=== PATIENT | female | born 1985 | race Caucasian/White ===

== ENCOUNTER 2023-04-20 14:43 | Emergency (ER) | payer BC, SELFPAY ==
[2023-04-20 14:48] VITALS: BP 141/108; PULSE 93; RESP 24; TEMP 36.4; O2SAT 100; BMI 32.1
--- NOTE | 2023-04-20 15:02 | ED_ITS ---
HPI - General Adult General Time Seen by Provider: 15:02 Date Seen: 04/20/23 Chief complaint: Abdominal Pain Stated complaint: severe stomach pains Time Seen by Provider: 04/20/23 14:45 Source: patient Mode of arrival: ambulatory Limitations: no limitations History of Present Illness HPI narrative: Patient is a 37 year white female new to our hospital and ER who now lives in [place]. She has been hospitalized for cyclic vomiting syndrome and treated in the ER many times for at [facility] by her report. The patient reports she has posttraumatic stress disorder, depression/anxiety, and cyclic vomiting syndrome. She has not smoked marijuana for a couple of weeks. She reports that ?running water down my back tends to help this the most and of ?. She is alert oriented, is retching. Is anxious and screaming about on the bed. She denies significant abdominal pain to me denies chest pain breathing problem neurologic complaint. She is on trazodone and also on a small dose of olanzapine 2.5 mg orally daily. She is down to no history of cardiac arrhythmias no history of QT interval prolongation by her report when asked. She has tolerated the Zyprexa well. No recent illness. She does report that her posttraumatic stress has been ramped up recently as well. Related Data Allergies Allergy/AdvReac Type Severity Reaction Status Date / Time No Known Drug Allergies Allergy Verified 04/20/23 14:47 Review of Systems Status of ROS: Reports: 6 or more systems reviewed and unremarkable except as noted in History and below [facility] Social History Smoking Status: Current some day smoker Do you use any of these nicotine containing products: None How often do you have a drink containing alcohol: never How often do you have six or more drinks on one occasion: Less than monthly AUDIT-C Alcohol total score: 1 service: No Exam Narrative: Exam Narrative: Objective: In general the patient is retching but able to talk, is distracti ble. She is able to show me her medic and medications that she has on her phone. Vital signs look largely unremarkable on that elevated blood pressure Alert orient x3 Noncyanotic No facial asymmetry neck is supple pulses regular abdomen nontender soft, bowel sounds normoactive Extremities are no edema neurologic nonfocal No skin rashes noted No nuchal rigidity Const: Vital Signs, click to edit/add: Vital Signs - 24 hr 04/20/23 18:38 Pulse Rate [Pulse Oximeter] 78 Respiratory Rate 20 Blood Pressure [Ri ght Upper Arm] 137/88 Pulse Oximetry 98 Oxygen Delivery Me thod Room Air Course Course Hospital Course: Patient was signed out to me by Dr. Hassan to follow-up on labs. Her labs are all normal including CBC, metabolic panel, LFTs, amylase and CRP. Notably sodium and potassium as well as CO2 are all normal. She had some IV fluids. She had apparently had Zofran at home. She had Ativan and Zyprexa prior to my taking over. She was noted to be sleeping but then when the nurse would go in the room she would start to retching complained that she was not feeling better. I did give her droperidol 2.5 mg. She slept for a period of time after that and I think it is reasonable to let her go home. Follow discharge instructions per Dr. Hassan. Vital Signs Vital signs: Initial Vital Signs Temperature 97.5 F L 04/20/23 14:48 Temperature Source Temporal Artery Scan 04/20/23 14:48 Pulse Rate 93 04/20/23 14:48 Pulse Rhythm Regular 04/20/23 14:48 Respiratory Rate 24 04/20/23 14:48 Blood Pressure 141/108 H 04/20/23 14:48 Blood Pressure Mean 119 H 04/20/23 14:48 Blood Pressure Position Supine 04/20/23 14:48 Pulse Oximetry 100 04/20/23 14:48 Oxygen Delivery Method Room Air 04/20/23 14:48 Vital Signs Temperature 97.5 F L 04/20/23 14:48 Pulse Rate 93 04/20/23 14:48 Respiratory Rate 24 04/20/23 14:48 Blood Pressure 141/108 H 04/20/23 14:48 Pulse Oximetry 100 04/20/23 14:48 Oxygen Delivery Method Room Air 04/20/23 14:48 Temperature 97.5 F L 04/20/23 14:48 Pulse Rate 78 04/20/23 18:38 Respiratory Rate 20 04/20/23 18:38 Blood Pressure 137/88 04/20/23 18:38 Pulse Oximetry 98 04/20/23 18:38 Oxygen Delivery Method Room Air 04/20/23 18:38 Medical Decision Making MDM Narrative Medical decision making narrative: [age] white female with history of cyclic vomiting syndrome, posttraumatic stress disorder, anxiety/depression, presents with a cyclic vomiting type episode. She does take Zyprexa small dose daily, I think at this point the most effective treatment would be IV fluids, IV Zyprexa and IV Ativan. She does report that she took Zofran already today. Will do a battery of laboratory studies, and use the treatment as above. The patient does feel she can get a ride home. Stressed the importance of staying away from THC products. Also that she should re-consult with her primary care doctor about her posttraumatic stress disorder. She denies suicidality. Addendum: 3:42 p.m. the patient is getting a little bit a relief from her medications, I think giving her additional 5 mg IV Zyprexa be appropriate. She has had less retching but still retching some. We will review labs and disposition pending her clinical response. She does have a ride from her father. Will review her labs and they return. Change of shift and Dr. Cornell will assume care at this point for discharge and lab review. Lab Data Labs: Lab Results 04/20/23 Range/Units 15:00 WBC 12.48 H (4.50-11.00) K/uL RBC 4.83 (4.00-5.20) m/uL Hgb 12.6 (12.0-16.0) gm/dL Hct 39.4 (33.0-51.0) % MCV 82 (80-100) fL MCH 26 (26-34) pg MCHC 32 (32-36) gm/dL RDW Coeff of [place] 14.3 (11.5-15.5) % Plt Count 353 (140-440) K/uL Neut % (Auto) 73.3 H (42.0-72.0) % Lymph % (Auto) 19.3 L (20-44) % [place] % (Auto) 5.0 (0.0-11.0) % Eos % (Auto) 1.8 (0.0-7.0) % Baso % (Auto) 0.4 (0.0-3.0) % Neut # (Auto) 9.10 H (1.7-7.0) K/uL Lymph # (Auto) 2.40 (0.90-2.90) K/uL [place] # (Auto) 0.60 (0.00-0.90) K/UL Eos # (Auto) 0.20 (0.00-0.50) K/uL Baso # (Auto) 0.00 (0.00-0.30) K/uL Abs Immat Gran (auto) 0.00 (0.00-0.30) K/uL Imm/Tot Granulo (auto) 0.2 % Sodium 138 (135-149) mmol/L Potassium 3.6 (3.6-5.1) mmol/L Chloride 103 (96-114) mmol/L Carbon Dioxide 24 (20-32) mmol/L BUN 14 (5-24) mg/dL Creatinine 0.8 (0.5-1.5) mg/dL Estimated Creat Clear 93.63 Estimated GFR 97 ml/min Glucose 113 (60-115) mg/dL Calcium 9.7 (8.4-10.6) mg/dL Total Bilirubin 0.4 (0.1-1.5) mg/dL Direct Bilirubin 0.0 (0.0-0.5) mg/dL AST 31 (12-35) U/L ALT 30 (4-35) U/L Alkaline Phosphatase 71 (40-150) U/L C-Reactive Protein 0.7 (0.5-1.0) mg/dL Total Protein 7.8 (6.0-8.3) g/dL Albumin 4.6 (3.3-5.0) g/dL Amylase 52 (18-89) U/L Discharge Plan Discharge Clinical Impression: Cyclic vomiting syndrome, Chronic posttraumatic stress disorder Patient Disposition: Home w/ Parent or Adult Condition: Improved Additional Instructions: Light activity, fluids, continue home medications, avoid any THC containing products. Recheck with regular doctor to talk about your mental health as well as the cyclical vomiting syndrome. Return to the ED as needed. Activity Level: Light activity Discharge Diet: Regular Stand Alone Forms: [employer] Info Instructions
[2023-04-20] MEDS: 0.9 % SODIUM CHLORIDE 1000 ml 1,000 ML 6000 ML IV (15:23)
[2023-04-20] MEDS: OLANZapine 5 MG/ML inj IVP ×2 (15:24→15:44)
[2023-04-20] MEDS: LORazepam 2 MG/ML inj 1 MG IVP (15:24)
[2023-04-20 15:31] LABS: Basophils Percent Auto 0.4 % (0.0-3.0); Eosinophils Percent Auto 1.8 % (0.0-7.0); Hematocrit 39.4 % (33.0-51.0); Hemoglobin* 12.6 gm/dL (12.0-16.0); Immature Granulocytes Pct Auto 0.2 %; Lymphocytes Percent Auto 19.3 % (20-44); Mean Corpuscular HGB Conc 32 gm/dL (32-36); Mean Corpuscular Hemoglobin 26 pg (26-34); Mean Corpuscular Volume 82 fL (80-100); Neutrophils Percent Auto 73.3 % (42.0-72.0); Platelet Count* 353 K/uL (140-440); RDW Coefficient of Variation % 14.3 % (11.5-15.5); Red Blood Count 4.83 m/uL (4.00-5.20); White Blood Count* 12.48 K/uL (4.50-11.00)
[2023-04-20 15:46] LABS: Chloride* 103 mmol/L (96-114)
[2023-04-20 15:47] LABS: Potassium* 3.6 mmol/L (3.6-5.1); Sodium* 138 mmol/L (135-149)
[2023-04-20 15:49] LABS: Creatinine* 0.8 mg/dL (0.5-1.5); Est. Creatinine Clearance* 93.63; Estimated Glomerular Filt Rate 97 ml/min
[2023-04-20 15:50] LABS: Blood Urea Nitrogen* 14 mg/dL (5-24); Calcium* 9.7 mg/dL (8.4-10.6); Carbon Dioxide* 24 mmol/L (20-32); Glucose* 113 mg/dL (60-115)
[2023-04-20 15:53] LABS: C Reactive Protein* 0.7 mg/dL (0.5-1.0)
[2023-04-20 16:00] LABS: Slide Review Reflex No
[2023-04-20 16:10] VITALS: BP 125/67; PULSE 87; RESP 18; O2SAT 97
[2023-04-20 16:10] LABS: Albumin* 4.6 g/dL (3.3-5.0)
[2023-04-20 16:12] LABS: Amylase* 52 U/L (18-89); Total Protein* 7.8 g/dL (6.0-8.3)
[2023-04-20 16:13] LABS: Alanine Aminotransferase* 30 U/L (4-35); Alkaline Phosphatase* 71 U/L (40-150); Aspartate Amino Transferase* 31 U/L (12-35); Bilirubin Total* 0.4 mg/dL (0.1-1.5)
[2023-04-20] MEDS: droperidoL 2.5 MG/ML inj IV (16:57)
[2023-04-20 18:38] VITALS: BP 137/88; PULSE 78; RESP 20; O2SAT 98
== END 2023-04-20 18:40 | disposition home or self-care (01) ==
LOC: ED 17:06
PROVIDERS: Family Medicine; Emergency Provider Emergency Medicine
DX: R11.15 Cyclical vomiting syndrome unrelated to migraine (principal); F43.12 Post-traumatic stress disorder, chronic
CPT/HCPCS: 36415; 80048; 80076; 82150; 85025; 86140; 96374; 96375; 99284; 99285; J1790; J2060; J7030; S0166

== ENCOUNTER 2023-04-22 07:21 | Emergency (ER) | payer BC, SELFPAY ==
[2023-04-22 07:25] VITALS: BP 136/92; PULSE 93; RESP 18; TEMP 36.8; O2SAT 99; BMI 32.1
--- NOTE | 2023-04-22 08:12 | ED.GENADULT ---
HPI - General Adult General Chief complaint: Nausea/Vomiting Stated complaint: stomach issues, vomiting Time Seen by Provider: 04/22/23 08:04 Source: patient Mode of arrival: ambulatory Limitations: no limitations History of Present Illness HPI narrative: 37-year-old female coming in today complaining of vomiting and dry heaving for the last 2 days. Patient states that this has occurred her many times in the past. She was you 2 days ago with similar issues. She states that after treatment in the ER today's ago she has not improved. States she has not eaten anything in the last 2 days because she is afraid. States that she can not keep down small sips of water throughout the day. Denies fevers or chills. She is complaining about increasing abdominal pain located in the epigastric region radiating both to the left on the right. She denies any blood in her vomitus. She denies any diarrhea. No chest pain. She states that lorazepam generally does make her feel better. She has Zofran at home. She has been doing multiple showers which helped, and capsaicin to her back which also helps. She does use marijuana frequently, denies any use in last couple of weeks. Past medical history significant for cyclic vomiting syndrome and PTSD for which she believes her vomiting on. She denies intra-abdominal surgery. Related Data Home Medications Medication Instructions Recorded Confirmed olanzapine 10 mg tablet 10 mg PO QPM 04/22/23 04/22/23 ondansetron HCl 4 mg tablet PO 04/22/23 pantoprazole 20 mg tablet,delayed 20 mg PO DAILY 04/22/23 04/22/23 release Previous Rx's Medication Instructions Recorded lorazepam 0.5 mg tablet 0.5 mg PO BID PRN #5 tabs 04/22/23 Allergies Allergy/AdvReac Type Severity Reaction Status Date / Time No Known Drug Allergies Allergy Verified 04/20/23 14:47 Review of Systems Status of ROS: Reports: 10 or more systems reviewed and unremarkable except as noted in History and below [facility] Social History Smoking Status: Current some day smoker Do you use any of these nicotine containing products: None How often do you have a drink containing alcohol: never How often do you have six or more drinks on one occasion: Less than monthly AUDIT-C Alcohol total score: 1 Non-prescribed substance use: marijuana (any form) service: No Exam Narrative: Exam Narrative: Well-nourished well-developed patient, she is sleeping when I enter the room. Once awake she is Alert and oriented x3. Answers questions appropriately. Appears distressed. Thoughts are goal oriented and rational. No tangential or magical thinking noted. Patient speaks in full sentences without needing to catch her breath. HEENT: Normocephalic atraumatic. Pupils are equally round reactive to light. Extraocular muscles are intact. Conjunctivae are moist without any icterus noted. Slightly dry mucous membranes. Posterior pharynx is normal. Neck is soft without any lymphadenopathy or thyromegaly. No masses are appreciated. Cardiovascular: Heart is regular rate and rhythm S1 and S2 are present without any murmurs. Lungs: Clear to auscultation bilaterally no wheezes rhonchi or rales are appreciated. Patient takes deep breaths without any discomfort. Abdomen: Soft and nondistended with normal bowel sounds. No guarding or rebound. No masses or organomegaly appreciated. She has mild epigastric discomfort. Negative Baker sign. Extremities: Bilateral lower extremities are without edema. Skin: Well perfused without any obvious rashes. I do hear her retching only once I leave the room. Const: Vital Signs, click to edit/add: Vital Signs - 24 hr 04/22/23 07:25 04/22/23 08:46 Temperature 98.2 F Pulse Rate [Right Pulse Oximeter] 93 Respiratory Rate 18 Blood Pressure [Ri ght Upper Arm] 136/92 H Pulse Oximetry 99 100 Oxygen Delivery Me thod Room Air Course Course Hospital Course: IV is established. Patient received a L of normal saline, 0.5 mg of IV Ativan and 5 mg of IV Zyprexa. Her vomiting did resolve and she fell back asleep. Her lab work was unremarkable. Her drug screen did come back positive for marijuana. Vital Signs Vital signs: Initial Vital Signs Temperature 98.2 F 04/22/23 07:25 Temperature Source Temporal Artery Scan 04/22/23 07:25 Pulse Rate 93 04/22/23 07:25 Respiratory Rate 18 04/22/23 07:25 Blood Pressure 136/92 H 04/22/23 07:25 Blood Pressure Mean 106 H 04/22/23 07:25 Blood Pressure Position Sitting 04/22/23 07:25 Pulse Oximetry 99 04/22/23 07:25 Oxygen Delivery Method Room Air 04/22/23 07:25 Vital Signs Temperature 98.2 F 04/22/23 07:25 Pulse Rate 93 04/22/23 07:25 Respiratory Rate 18 04/22/23 07:25 Blood Pressure 136/92 H 04/22/23 07:25 Pulse Oximetry 99 04/22/23 07:25 Oxygen Delivery Method Room Air 04/22/23 07:25 Temperature 98.2 F 04/22/23 07:25 Pulse Rate 93 04/22/23 07:25 Respiratory Rate 18 04/22/23 07:25 Blood Pressure 136/92 H 04/22/23 07:25 Pulse Oximetry 100 04/22/23 08:46 Oxygen Delivery Method Room Air 04/22/23 07:25 Medical Decision Making MDM Narrative Medical decision making narrative: 37-year-old female with cyclic vomiting. I will send her home with 5 tablets of Ativan. She is instructed to follow up with primary care provider to discuss treatment going forward. Medical Records Medical records reviewed: Yes I reviewed the patient's medical records Lab Data Lab results reviewed: Yes I reviewed the patient's lab results Labs: Lab Results 04/22/23 Range/Units 08:22 WBC 8.82 (4.50-11.00) K/uL RBC 4.95 (4.00-5.20) m/uL Hgb 12.6 (12.0-16.0) gm/dL Hct 40.1 (33.0-51.0) % MCV 81 (80-100) fL MCH 26 (26-34) pg MCHC 31 L (32-36) gm/dL RDW Coeff of Toan 14.8 (11.5-15.5) % Plt Count 293 (140-440) K/uL Neut % (Auto) 79.8 H (42.0-72.0) % Lymph % (Auto) 9.5 L (20-44) % [place] % (Auto) 9.4 (0.0-11.0) % Eos % (Auto) 0.6 (0.0-7.0) % Baso % (Auto) 0.5 (0.0-3.0) % Neut # (Auto) 7.00 (1.7-7.0) K/uL Lymph # (Auto) 0.80 L (0.90-2.90) K/uL [place] # (Auto) 0.80 (0.00-0.90) K/UL Eos # (Auto) 0.05 (0.00-0.50) K/uL Baso # (Auto) 0.04 (0.00-0.30) K/uL Abs Immat Gran (auto) 0.02 (0.00-0.30) K/uL Imm/Tot Granulo (auto) 0.2 % Sodium 135 (135-149) mmol/L Potassium 3.6 (3.6-5.1) mmol/L Chloride 100 (96-114) mmol/L Carbon Dioxide 23 (20-32) mmol/L BUN 13 (5-24) mg/dL Creatinine 0.8 (0.5-1.5) mg/dL Estimated Creat Clear 93.63 Estimated GFR 97 ml/min Glucose 120 H (60-115) mg/dL Lactate 1.1 (0.5-1.9) mmol/L Calcium 9.4 (8.4-10.6) mg/dL Total Bilirubin 0.3 (0.1-1.5) mg/dL Direct Bilirubin 0.0 (0.0-0.5) mg/dL AST 30 (12-35) U/L ALT 29 (4-35) U/L Alkaline Phosphatase 66 (40-150) U/L Total Protein 7.8 (6.0-8.3) g/dL Albumin 4.7 (3.3-5.0) g/dL Lipase 77 (23-300) U/L Urine Color Yellow (Yellow) Urine Appearance Cloudy A (Clear) Urine pH 7.0 (5.0-8.5) Ur Specific [place] 1.020 (1.000-1.030) Urine Protein Negative (Negative) Urine Glucose (UA) Negative (Negative) Urine Ketones Negative (Negative) Urine Blood Negative (Negative) Urine Nitrite Negative (Negative) Urine Bilirubin Negative (Negative) Urine Urobilinogen 0.2 (0.2-1.0) Ur Leukocyte Esterase Trace A (Negative) Urine RBC 0-2 (0-2) Urine WBC 2-5 (0-5) Ur Squamous Epith Cells Moderate A (None-Few) Urine Bacteria Few A (None) Urine HCG, Qual Negative (Negative) Urine Opiates Screen Negative (Negative) Ur Oxycodone Screen Negative (Negative) Urine Methadone Screen Negative (Negative) Ur Propoxyphene Screen Negative (Negative) Ur Barbiturates Screen Negative (Negative) U Tricyclic Antidepress Negative (Negative) Ur Phencyclidine Scrn Negative (Negative) Ur Amphetamines Screen Negative (Negative) U Methamphetamines Scrn Negative (Negative) U Benzodiazepines Scrn Negative (Negative) Urine Cocaine Screen Negative (Negative) U Marijuana (THC) Screen POSITIVE A (Negative) Ur Drug Screen Comment See Note Ethyl Alcohol < 0.01 L (0.01-0.03) % Discharge Plan Discharge Clinical Impression: Cyclic vomiting syndrome Patient Disposition: Home, Self-Care Condition: Improved Additional Instructions: You need to follow-up with your primary care provider to discuss treatment going forward. Recommend you abstain from all THC products. You will be sent home with 5 tablets of Ativan today to take as needed. Prescriptions: New lorazepam 0.5 mg tablet 0.5 mg PO BID PRNQty: 5 0RF No Action ondansetron HCl 4 mg tablet PO olanzapine 10 mg tablet 10 mg PO QPM pantoprazole 20 mg tablet,delayed release (DR/EC) 20 mg PO DAILY Follow Up/Referrals: Provider,Not a Local [Primary Care Provider] - Stand Alone Forms: [employer] Info Instructions
[2023-04-22] MEDS: 0.9 % SODIUM CHLORIDE 1000 ml 1,000 ML IV (08:34)
[2023-04-22] MEDS: LORazepam 2 MG/ML inj 0.5 MG IVP (08:36)
[2023-04-22 08:37] LABS: Lactate* 1.1 mmol/L (0.5-1.9)
[2023-04-22] MEDS: OLANZapine 5 MG/ML inj IVP (08:37)
[2023-04-22 08:39] LABS: Basophils Absolute Auto 0.04 K/uL (0.00-0.30); Basophils Percent Auto 0.5 % (0.0-3.0); Eosinophils Absolute Auto 0.05 K/uL (0.00-0.50); Eosinophils Percent Auto 0.6 % (0.0-7.0); Hematocrit 40.1 % (33.0-51.0); Hemoglobin* 12.6 gm/dL (12.0-16.0); Immature Granulocytes Abs Auto 0.02 K/uL (0.00-0.30); Immature Granulocytes Pct Auto 0.2 %; Lymphocytes Percent Auto 9.5 % (20-44); Mean Corpuscular HGB Conc 31 gm/dL (32-36); Mean Corpuscular Hemoglobin 26 pg (26-34); Mean Corpuscular Volume 81 fL (80-100); Monocytes Percent Auto 9.4 % (0.0-11.0); Neutrophils Percent Auto 79.8 % (42.0-72.0); Platelet Count* 293 K/uL (140-440); RDW Coefficient of Variation % 14.8 % (11.5-15.5); Red Blood Count 4.95 m/uL (4.00-5.20); Slide Review Reflex No; White Blood Count* 8.82 K/uL (4.50-11.00)
[2023-04-22 08:46] VITALS: O2SAT 100
[2023-04-22 08:48] LABS: Appearance Urine Cloudy (Clear); Bilirubin Urine Negative (Negative); Blood Urine Negative (Negative); Color Urine Yellow (Yellow); Glucose Urine Negative (Negative); Ketones Urine Negative (Negative); Leukocyte Esterase Urine Trace (Negative); Nitrite Urine Negative (Negative); Protein Urine Negative (Negative); Urobilinogen Urine 0.2 (0.2-1.0)
[2023-04-22 08:49] LABS: Amphetamine Screen Urine Negative (Negative); Barbiturate Screen Urine Negative (Negative); Benzodiazepines Screen Urine Negative (Negative); Cannabinoid Screen Urine POSITIVE (Negative); Cocaine Screen Urine Negative (Negative); Methadone Screen Urine Negative (Negative); Methamphetamines Screen Urine Negative (Negative); Opiate Screen Urine Negative (Negative); Oxycodone Screen Urine Negative (Negative); Phencyclidine Screen Urine Negative (Negative); Tricyclic Antidepressant Urine Negative (Negative)
[2023-04-22 08:52] LABS: Ur HCG Qualitative* Negative (Negative)
[2023-04-22 08:56] LABS: RBC Urine 0-2 (0-2)
[2023-04-22 08:57] LABS: Bacteria Urine Few; Squamous Epithelial Cell Urine Moderate (None-Few)
[2023-04-22 09:00] LABS: Albumin* 4.7 g/dL (3.3-5.0); Chloride* 100 mmol/L (96-114); Sodium* 135 mmol/L (135-149)
[2023-04-22 09:01] LABS: Potassium* 3.6 mmol/L (3.6-5.1)
[2023-04-22 09:03] LABS: Alkaline Phosphatase* 66 U/L (40-150); Aspartate Amino Transferase* 30 U/L (12-35); Bilirubin Total* 0.3 mg/dL (0.1-1.5); Blood Urea Nitrogen* 13 mg/dL (5-24); Calcium* 9.4 mg/dL (8.4-10.6); Carbon Dioxide* 23 mmol/L (20-32); Creatinine* 0.8 mg/dL (0.5-1.5); Est. Creatinine Clearance* 93.63; Estimated Glomerular Filt Rate 97 ml/min; Glucose* 120 mg/dL (60-115); Total Protein* 7.8 g/dL (6.0-8.3)
[2023-04-22 09:04] LABS: Alanine Aminotransferase* 29 U/L (4-35); Lipase* 77 U/L (23-300)
[2023-04-22 09:05] LABS: Ethanol* < 0.01 % (0.01-0.03)
--- NOTE | 2023-04-22 09:35 | ED.NURSE ---
Ativan prescription phoned into [facility] pharmacy per MD request.
== END 2023-04-22 09:36 | disposition home or self-care (01) ==
PROVIDERS: Emergency Provider Family Medicine
DX: R11.15 Cyclical vomiting syndrome unrelated to migraine (principal)
CPT/HCPCS: 36415; 80048; 80076; 80306; 81001; 81025; 82077; 83605; 83690; 85025; 87086; 94761; 96374; 96375; 99284; J2060; J7030; S0166

== ENCOUNTER 2024-06-18 08:44 | Emergency (ER) | payer MEDICARE, SELFPAY ==
--- OUTSIDE RECORDS SUMMARY | 2024-06-18 08:45 | XMS_ITS | Clinical Summary ---
Author Organization [facility] Address [address] [address] Care Team Providers Care Food Services Manager Name Role Phone No Ref-Primary, Physician Primary Care Provider Allergies No known active allergies Medications Medication Sig Dispensed Refills Start Date End Date Status methylprednisoLONE (MEDROL DOSEPACK) 4 MG tablet Follow package directions. 1 Package 0 04/01/2012 Active Additional Information Patient not taking.Reported on 12/08/2017 traMADol (ULTRAM) 50 MG tablet Take 1 tablet by mouth every 6 hours as needed for pain. 20 tablet 0 04/01/2012 Active Additional Information Patient not taking.Reported on 12/08/2017 ibuprofen (ADVIL,MOTRIN) 200 MG tablet Take 3 tablets by mouth every 8 hours as needed for pain. 30 tablet 1 04/01/2012 Active Additional Information Patient not taking.Reported on 12/08/2017 methylPREDNISolone (MEDROL DOSEPAK) 4 MG tabletIndications: Chest wall pain,Costochondrit is Follow package instructions 21 tablet 12/08/2017 Active HYDROcodone-acetam inophen (NORCO) 5-325 MG per tabletIndications: Costochondritis,Ch est wall pain Take 1-2 tablets by mouth nightly as needed 10 tablet 12/08/2017 Active oxyCODONE (ROXICODONE) 5 MG tablet Take 1 tablet (5 mg) by mouth every 6 hours as needed for severe pain 10 tablet 02/27/2023 Active Social History Tobacco Use Types Packs/Day Years Used Date Smoking Tobacco: Former Smokeless Tobacco: Never Alcohol Use Standard Drinks/Week Comments Yes 0 (1 standard drink = 0.6 oz pur e alcohol) Adolescent Education Answer Date Record ed Getting School Help Needed Not on file 06/24 Sex and Gender Information Value Date Recorded Sex Assigned at Not on file Gender Identity Not on file Sexual Orientation Not on file Last Filed Vital Signs Vital Sign Reading Time Taken Comments Blood Pressure 145/97 02/27/2023 9:35 PM CDT Pulse 107 02/27/2023 9:35 PM CDT Temperature 36.9 ??C (98.4 ??F) 02/27/2023 9:33 PM CD T Respiratory Rate 20 02/27/2023 9:33 PM CDT Oxygen Saturation 96% 02/27/2023 9:38 PM CDT Inhaled Oxygen Concentration - - Weight 69.5 kg (153 lb 4 oz) 12/08/2017 3:28 PM CDT Height 170.2 cm (5' 7) 08/29/2011 2:01 PM [employer] Body Mass Index 24 08/29/2011 2:01 PM [employer] Plan of Treatment Health Maintenance Due Date Last Done Comments ADVANCE CARE PLANNING 1985 ANNUAL REVIEW OF HM ORDERS 1985 YEARLY PREVENTIVE VISIT 1985 HIV SCREENING 2000 HEPATITIS C SCREENING 12/31/2003 HEPATITIS B IMMUNIZATION (1 of 3 - 19+ 3-dose series) 2004 PAP 2006 HPV IMMUNIZATION (2 - 3-dose series) 11/28/2007 10/31/2007 PHQ-2 (once per calendar year) 2023 COVID-19 Vaccine (1 - 2023-2 5 season) 2024 INFLUENZA VACCINE (#1) 2024 GLUCOSE 02/27/2026 02/27/2023 DTAP/TDAP/TD IMMUNIZATION (4 - Td or Tdap) 07/02/2029 07/02/2019, 03/31/2015, 01/17/1998 MENINGITIS IMMUNIZATION Aged Out No l onger eligible based on patient's age to complete this topic Pneumococcal Vaccine: Pediatrics (0 to 5 Years) and At-Risk Patients (6 to 64 Years) Aged Out No longer eligible b ased on patient's age to complete this topic RSV MONOCLONAL ANTIBODY Aged Out No l onger eligible based on patient's age to complete this topic Procedures Procedure Name Priority Date/Time Associated Diagnosis Comments COMPREHENSIVE METABOLIC PANEL STAT 02/27/2023 8:08 PM CDT from Last 3 Months or Most Recently Relevant to Health Maintenance Results * (ABNORMAL) Comprehensive metabolic panel (02/27/2023 8:08 PM CDT) Sodium 135(L) 136 - 145 mmol/L 02/27/2023 8:51 PM CDT [facility] Potassium 4.1 3.4 - 5.3 mmol/L 02/27/2023 8:51 PM CDT [facility] Chloride 99 98 - 107 mmol/L 02/27/2023 8:51 PM CDT [facility] Carbon Dioxide (CO2) 28 22 - 29 mmol/L 02/27/2023 8:51 PM CDT [facility] Anion Gap 8 7 - 15 mmol/L 02/27/2023 8:51 PM CDT [facility] Urea Nitrogen 14.0 6.0 - 20.0 mg/dL 02/27/2023 8:51 PM CDT [facility] Creatinine 0.87 0.51 - 0.95 mg/dL 02/27/2023 8:51 PM CDT [facility] Calcium 9.3 8.6 - 10.0 mg/dL 02/27/2023 8:51 PM CDT [facility] Glucose 105(H) 70 - 99 mg/dL 02/27/2023 8:51 PM CDT [facility] Alkaline Phosphatase 82 35 - 104 U/L 02/27/2023 8:51 PM CDT [facility] AST 20 10 - 35 U/L 02/27/2023 8:51 PM CDT [facility] ALT 23 10 - 35 U/L 02/27/2023 8:51 PM CDT [facility] Protein Total 6.5 6.4 - 8.3 g/dL 02/27/2023 8:51 PM CDT [facility] Albumin 3.8 3.5 - 5.2 g/dL 02/27/2023 8:51 PM CDT [facility] Bilirubin Total 0.2 <=1.2 mg/dL 02/27/2023 8:51 PM CDT [facility] GFR Estimate 88 >60 mL/min/1.7 3m2 02/27/2023 8:51 PM CDT [facility] Comment:eGFR calculated usin g 2020 CKD-EPI equation. Blood BLOOD SPECIMEN / Unknown Venipuncture / Unknown 02/27/2023 8:08 PM CDT 02/27/2023 8:19 PM CDT Octavio Rojas MD LAB - BLOOD ORDERABL ES [facility] [address] Lab (1st floor, no room number) [place] [address], [facility] [[email or web address]] [phone] from Last 3 Months or Most Recently Relevant to Health Maintenance Care Teams Food Services Manager Relationship Specialty Start Date End Date No Ref-Primary, Physician PCP - General 12/08/17
--- OUTSIDE RECORDS SUMMARY | 2024-06-18 08:46 | XMS_ITS | Clinical Summary ---
Author Organization [facility] Address [address] [place] [address] Care Team Providers Care Boilermaking Supervisor Name Role Phone Elsewhere, Pcp Primary Care Provider Unavailabl e Source Comments Patient records contain information from all sites at [facility]. For routine questions regarding patient records, call [phone] during business hours, M-F 8:00 AM - 5:00 PM Central Time. Record requests for emergency care only can be directed to [phone] at any time.[facility] Allergies No known active allergies Medications Medication Sig Dispensed Refills Start Date End Date Status acetaminophen (TYLENOL) 325 mg tablet Take 650 mg by mouth every 4 (four) hours as needed for moderate pain or score 4-6 of 10. 05/18/2023 Active escitalopram (LEXAPRO) 20 mg tablet Take 20 mg by mouth daily. 06/02/2021 Active hydrOXYzine (VISTARIL) 25 mg capsule Take 25 mg by mouth daily. 05/20/2023 Active ibuprofen (ADVIL,MOTRIN) 200 mg tablet Take 600 mg by mouth every 6 (six) hours as needed for moderate pain or score 4-6 of 10. 05/18/2023 Active melatonin 3 mg tablet Take 9 mg by mouth at bedtime as needed for sleep. 12/17/2022 Active metFORMIN (GLUCOPHAGE) 500 mg tablet Take 500 mg by mouth daily with breakfast. 04/19/2023 Active OLANZapine (ZyPREXA) 2.5 mg tablet Take 5 mg by mouth 2 (two) times a day. 04/22/2022 Active ondansetron ODT (ZOFRAN-ODT) 4 mg disintegrating tablet Dissolve 4 mg in the mouth every 8 (eight) hours as needed for nausea. Active oxyCODONE (ROXICODONE) 5 mg immediate release tablet Take 5 mg by mouth every 4 (four) hours as needed for severe pain or score 7-10 of 10. 02/27/2023 Active pantoprazole (PROTONIX) 20 mg EC tablet Take 20 mg by mouth every morning before breakfast. 04/19/2023 Active prazosin (MINIPRESS) 2 mg capsule Take 2 capsules by mouth at bedtime. 12/17/2022 Active prazosin (MINIPRESS) 1 mg capsule Take 1 mg by mouth daily. 05/12/2023 Active traZODone (DESYREL) 50 mg tablet Take 50 mg by mouth at bedtime as needed for sleep. 03/22/2023 Active venlafaxine XR (EFFEXOR-XR) 150 mg 24 hr capsule Take 150 mg by mouth daily with breakfast. 12/17/2022 Active Immunizations Name Administration Dates Next Due 4vHPV (discontinued) 10/31/2007 Social History Tobacco Use Types Packs/Day Years Used Date Smoking Tobacco: Every Day Cigarettes Alcohol Use Standard Drinks/Week Comments Defer 0 (1 standard drink = 0.6 oz pur e alcohol) Nutrition Answer Date Recorded Nutrition: EVOO Fat Source Unknown 05/24 Nutrition: Servings of Fruits/Vegetables per Day Not on file 05/24/2023 Dental Answer Date Recorded Dental: Regular Dentist Unknown 05/24/20 23 Sex and Gender Information Value Date Recorded Sex Assigned at Not on file Gender Identity Not on file Sexual Orientation Not on file Last Filed Vital Signs Vital Sign Reading Time Taken Comments Blood Pressure 146/91 05/24/2023 6:05 PM CDT Pulse 97 05/24/2023 6:05 PM CDT Temperature 36.7 ??C (98.1 ??F) 05/24/2023 6:05 PM CD T Respiratory Rate 16 05/24/2023 6:05 PM CDT Oxygen Saturation 97% 05/24/2023 6:05 PM CDT Inhaled Oxygen Concentration - - Weight - - Height 167.6 cm (5' 6) 05/24/2023 6:07 PM CDT Body Mass Index - - Plan of Treatment Not on file Medical Devices Implanted Type Area Clinical Nursing Director Device Identifier Shelf Expiration Date Model / Serial / Lot Ureteral Stent Ureteral Stent Left: Ureter Care Teams Boilermaking Supervisor Relationship Specialty Start Date End Date Elsewhere, Pcp PCP - General Internal Medicine 05/24/23
--- OUTSIDE RECORDS SUMMARY | 2024-06-18 08:46 | XMS_ITS ---
Author Organization [facility] Address [address] [place] [address] Care Team Providers Care Rehab Nursing Tech Name Role Phone Unavailable Unavailable Unavailable Surgery Details Not on file Complications Check Surgery Details section. Procedure Estimated Blood Loss Check Surgery Details section. Procedure Findings Check Surgery Details section. Procedure Specimens Taken Check Surgery Details section.
--- OUTSIDE RECORDS SUMMARY | 2024-06-18 08:46 | XMS_ITS | Referral Summary ---
Author Organization [place] Address [address] [place] [address] Care Team Providers Care Ebd Special Education Teacher Name Role Phone No Ref-Primary, Physician Primary [...] 170.2 cm (5' 7) 08/29/2011 2:01 PM HOSTING ENGINEER Body Mass Index 24 08/29/2011 2:01 PM HOSTING ENGINEER Plan of Treatment Not on file Procedures Procedure Name Priority Date/Time Associated Diagnosis [...] PM CDT [facility] Comment:eGFR calculated usin 2020 CKD-EPI equation. Blood BLOOD SPECIMEN / Unknown Venipuncture / Unknown 02/27/2023 8:08 PM CDT 02/27/2023 8:19 PM CDT Octavio Rojas MD LAB - BLOOD ORDERABL ES [facility] Acute Care Lab [address] Lab (1st floor, no room number) [place] [address], [facility] [phone] from Last 3 Months or Most Recently Relevant to Health Maintenance Care Teams Ebd Special Education Teacher Relationship Specialty Start Date End Date No Ref-Primary, Physician PCP - General 12/08/17
--- OUTSIDE RECORDS SUMMARY | 2024-06-18 08:46 | XMS_ITS | Referral Summary ---
Author Organization [facility] Address [address] [place] [address] Care Team Providers Care Crystalizer Name Role Phone Elsewhere, Pcp Primary Care Provider Unavailabl e Source Comments Patient records contain information from all sites at [facility]. For routine questions regarding patient records, call [phone] during business hours, M-F 8:00 AM - 5:00 PM Central Time. Record requests for emergency care only can be directed to [phone] at any time.[facility] Allergies No known active allergies Medications Medication [...] on file Medical Devices Implanted Type Area Vp Human Resources Device Identifier Shelf Expiration Date Model / Serial / Lot Ureteral Stent Ureteral Stent Left: Ureter Care Teams Crystalizer Relationship Specialty Start Date End Date Elsewhere, Pcp PCP - General Internal Medicine 05/24/23
[2024-06-18 08:55] VITALS: BP 161/96; PULSE 82; RESP 16; TEMP 36.7; O2SAT 97; BMI 33.1
[2024-06-18 09:29] LABS: Basophils Percent Auto 0.2 % (0.0-3.0); Eosinophils Percent Auto 0.5 % (0.0-7.0); Hematocrit 49.4 % (33.0-51.0); Immature Granulocytes Pct Auto 0.1 %; Lymphocytes Percent Auto 17.7 % (20-44); Mean Corpuscular HGB Conc 32 gm/dL (32-36); Mean Corpuscular Hemoglobin 27 pg (26-34); Mean Corpuscular Volume 82 fL (80-100); Monocytes Percent Auto 3.8 % (0.0-11.0); Neutrophils Percent Auto 77.7 % (42.0-72.0); Platelet Count* 370 K/uL (140-440); RDW Coefficient of Variation % 15.3 % (11.5-15.5); White Blood Count* 13.31 K/uL (4.50-11.00)
--- NOTE | 2024-06-18 09:30 | ED.GENADULT ---
HPI - General Adult General Time Seen by Provider: 09:31 Chief complaint: Abdominal Pain Stated complaint: vomiting/diarrhea x 2 days Time Seen by Provider: 06/18/24 08:59 History of Present Illness HPI narrative: Tarah is a 38-year-old female past medical history includes anxiety, chronic abdominal pain with cyclic vomiting presents emerged department via private car and self with vomiting and diarrhea. Patient states that since 4:00 a.m. yesterday she has had ongoing increased anxiety with vomiting, abdominal pain and diarrhea. Patient denies any fevers or chills, no changes with foods. Patient is unable to keep anything down. She is scheduled for an upper endoscopy next Tuesday. Pain is epigastric, radiates around, bilaterally to the back. She denies any urinary complaint. Patient currently takes pantoprazole. She feels this is more related to her anxiety. She denies any upper respiratory complaints chest pain or shortness of breath. No other concerns at this time. Last marijuana use was yesterday. Related Data Home Medications ?Medication ?Instructions ?Recorded ?Confirmed olanzapine 10 mg tablet 10 mg PO QPM 04/22/23 04/22/23 ondansetron HCl 4 mg tablet PO 04/22/23 pantoprazole 20 mg tablet,delayed 20 mg PO DAILY 04/22/23 04/22/23 release Previous Rx's ?Medication ?Instructions ?Recorded lorazepam 0.5 mg tablet 0.5 mg PO BID PRN #5 tabs 04/22/23 Allergies Allergy/AdvReac Type Severity Reaction Status Date / Time No Known Drug Allergies Allergy Verified 06/18/24 08:58 Review of Systems Status of ROS: Reports: 10 or more systems reviewed and unremarkable except as noted in History and below PFSH [facility] Social History Smoking Status: Current some day smoker Do you use any of these nicotine containing products: None How often do you have a drink containing alcohol: never How often do you have six or more drinks on one occasion: Less than monthly AUDIT-C Alcohol total score: 1 Non-prescribed substance use: marijuana (any form) service: No Exam Narrative: Exam Narrative: General: Mild distress, sitting on the floor HEENT: Pupils equal round reactive to light, extraocular muscles intact Heart: S1-S2, normal sinus rhythm Lungs: Clear to auscultation bilaterally Abdomen: Tender to palpation the epigastric region, soft, bowel sounds positive Muscle skeletal: No lower extremity edema Neuro: Alert awake and oriented x3 Const: Vital Signs, click to edit/add: Vital Signs - 24 hr 06/18/24 08:55 06/18/24 10:00 Temperature 98.1 F Pulse Rate 82 Pulse Rate [Pulse Oximeter] 82 Respiratory Rate 16 20 Blood Pressure [Ri ght Upper Arm] 161/96 H Pulse Oximetry 97 97 Oxygen Delivery Me thod Room Air Course Course ED Course: 9:15 AM: AIDET performed. Vitals are stable, workup will include IV peripheral, 40 mg IV Protonix, 4 mg IV Zofran, GI cocktail, 0.5 mg IV Ativan, will obtain CBC, CRP, lipase, urinalysis and serum test. Differential diagnosis include but not limited to appendicitis, aortic aneurysm, mesentery ischemia, bowel perforation or bowel obstruction, ectopic , volvulus, inflammatory bowel disease, IBS, cyclic vomiting syndrome, anxiety, PUD, diverticulitis, urolithiasis, PID, IUP, dysfunctional uterine bleeding, ovarian cyst torsion, as well as other etiologies. Reevaluation(s) Time of Reevaluation #1: 10:05 Reevaluation #1: Patient is still nauseated, pain persists, patient did tolerate droperidol in the past for the symptoms, will give 2.5 mg IV droperidol. Patient had a CT enterography on 04/27 which was unremarkable. Will plan not to obtain any further imaging, plan to treat symptomatically. Patient states that when she gets increased anxiety and stress her symptoms occur. Time of Reevaluation #2: 10:44 Reevaluation #2: Patient's symptoms have resolved, she is sleeping at this time, labs were otherwise unchanged from previous, to hold on further imaging since this is similar to her symptoms in the past and due to recent CT which was unremarkable, she has proper follow-up for upper endoscopy this Tuesday, she will continue with her current medications. Will plan to discharge home. Reasons return were given. Vital Signs Vital signs: Initial Vital Signs Temperature 98.1 F 06/18/24 08:55 Temperature Source Temporal Artery Scan 06/18/24 08:55 Pulse Rate 82 06/18/24 08:55 Pulse Rhythm Regular 06/18/24 08:55 Respiratory Rate 16 06/18/24 08:55 Blood Pressure 161/96 H 06/18/24 08:55 Blood Pressure Mean 117 H 06/18/24 08:55 Blood Pressure Position Sitting 06/18/24 08:55 Pulse Oximetry 97 06/18/24 08:55 Oxygen Delivery Method Room Air 06/18/24 08:55 Vital Signs Temperature 98.1 F 06/18/24 08:55 Pulse Rate 82 06/18/24 08:55 Respiratory Rate 16 06/18/24 08:55 Blood Pressure 161/96 H 06/18/24 08:55 Pulse Oximetry 97 06/18/24 08:55 Oxygen Delivery Method Room Air 06/18/24 08:55 Temperature 98.1 F 06/18/24 08:55 Pulse Rate 82 06/18/24 10:00 Respiratory Rate 20 06/18/24 10:00 Blood Pressure 161/96 H 06/18/24 08:55 Pulse Oximetry 97 06/18/24 10:00 Oxygen Delivery Method Room Air 06/18/24 08:55 Medications Administered Medications: Discontinued Medications Generic Name Dose Route Start Last Admin Trade Name Davidq PRN Reason Stop Dose Admin Droperidol 2.5 mg 06/18/24 10:04 06/18/24 10:08 Droperidol 2.5 Mg/Ml Inj IV 06/18/24 10:05 2.5 mg ONCE ONE Administration Sodium Chloride 1,000 mls @ 1,000 mls/hr 06/18/24 09:45 06/18/24 09:49 0.9 % Sodium Chloride 1000 Ml IV 06/18/24 10:44 1,000 mls/hr .Q1H BARBARA Administration Lidocaine/Aluminum/Magnesium/Simeth 30 ml 06/18/24 09:29 06/18/24 10:08 Gi Cocktail (Visc Lido/Antacid) 30 Ml PO 06/18/24 09:30 Not Given ONCE ONE Lorazepam 0.5 mg 06/18/24 09:28 06/18/24 09:34 Lorazepam 2 Mg/Ml Inj IVP 06/18/24 09:29 0.5 mg ONCE ONE Administration Ondansetron HCl 4 mg 06/18/24 09:28 06/18/24 09:36 Ondansetron 2 Mg/Ml Inj IVP 06/18/24 09:29 4 mg ONCE ONE Administration Pantoprazole Sodium 40 mg 06/18/24 09:28 06/18/24 09:39 Pantoprazole Sodium 40 Mg Inj IVP 06/18/24 09:29 40 mg ONCE ONE Administration Medical Decision Making Lab Data Labs: Lab Results 06/18/24 Range/Units 09:21 WBC 13.31 H (4.50-11.00) K/uL RBC 6.00 H (4.00-5.20) m/uL Hgb 16.0 (12.0-16.0) gm/dL Hct 49.4 (33.0-51.0) % MCV 82 (80-100) fL MCH 27 (26-34) pg MCHC 32 (32-36) gm/dL RDW Coeff of Toan 15.3 (11.5-15.5) % Plt Count 370 (140-440) K/uL Neut % (Auto) 77.7 H (42.0-72.0) % Lymph % (Auto) 17.7 L (20-44) % [place] % (Auto) 3.8 (0.0-11.0) % Eos % (Auto) 0.5 (0.0-7.0) % Baso % (Auto) 0.2 (0.0-3.0) % Neut # (Auto) 10.30 H (1.7-7.0) K/uL Lymph # (Auto) 2.40 (0.90-2.90) K/uL [place] # (Auto) 0.50 (0.00-0.90) K/UL Eos # (Auto) 0.10 (0.00-0.50) K/uL Baso # (Auto) 0.00 (0.00-0.30) K/uL Abs Immat Gran (auto) 0.00 (0.00-0.30) K/uL Imm/Tot Granulo (auto) 0.1 % Sodium 141 (135-149) mmol/L Potassium 4.0 (3.6-5.1) mmol/L Chloride 102 (96-114) mmol/L Carbon Dioxide 24 (20-32) mmol/L Anion Gap 15 (7-15) mEq/L BUN 15 (5-24) mg/dL Creatinine 0.7 (0.5-1.5) mg/dL Estimated Creat Clear 102.01 Estimated GFR 113 ml/min Glucose 145 H (60-115) mg/dL Calcium 11.0 H (8.4-10.6) mg/dL Total Bilirubin 0.4 (0.1-1.5) mg/dL AST 23 (12-35) U/L ALT 21 (4-35) U/L Alkaline Phosphatase 89 (40-150) U/L C-Reactive Protein 0.7 (0.5-1.0) mg/dL Total Protein 8.8 H (6.0-8.3) g/dL Albumin 5.4 H (3.3-5.0) g/dL Lipase 66 (23-300) U/L HCG, Quant < 2.39 mIU/mL Discharge Plan Discharge Clinical Impression: Cyclical vomiting Patient Disposition: Home, Self-Care Condition: Improved Instructions: Acute Nausea and Vomiting (DC) Additional Instructions: Follow-up as scheduled for an upper endoscopy next Tuesday [facility]. Return if worsening symptoms. Activity Level: No Restrictions Discharge Diet: Regular Prescriptions: No Action ondansetron HCl 4 mg tablet PO olanzapine 10 mg tablet 10 mg PO QPM pantoprazole 20 mg tablet,delayed release (DR/EC) 20 mg PO DAILY lorazepam 0.5 mg tablet 0.5 mg PO BID PRNQty: 5 0RF Follow Up/Referrals: Ethna Chacon MD [Primary Care Provider] - Stand Alone Forms: [employer] Info Instructions
[2024-06-18 09:32] LABS: Slide Review Reflex No
[2024-06-18] MEDS: LORazepam 2 MG/ML inj 0.5 MG IVP (09:34)
[2024-06-18] MEDS: ONDANSETRON 2 MG/ML inj 4 MG IVP (09:36)
[2024-06-18] MEDS: PANTOPRAZOLE SODIUM 40 MG INJ IVP (09:39)
[2024-06-18 09:47] LABS: Albumin* 5.4 g/dL (3.3-5.0); Chloride* 102 mmol/L (96-114)
[2024-06-18 09:48] LABS: Sodium* 141 mmol/L (135-149)
[2024-06-18] MEDS: 0.9 % SODIUM CHLORIDE 1000 ml 1,000 ML IV (09:49)
[2024-06-18 09:50] LABS: Bilirubin Total* 0.4 mg/dL (0.1-1.5); Creatinine* 0.7 mg/dL (0.5-1.5); Est. Creatinine Clearance* 102.01; Estimated Glomerular Filt Rate 113 ml/min
[2024-06-18 09:51] LABS: Alanine Aminotransferase* 21 U/L (4-35); Alkaline Phosphatase* 89 U/L (40-150); Anion Gap 15 mEq/L (7-15); Aspartate Amino Transferase* 23 U/L (12-35); Blood Urea Nitrogen* 15 mg/dL (5-24); Carbon Dioxide* 24 mmol/L (20-32); Glucose* 145 mg/dL (60-115); Lipase* 66 U/L (23-300); Total Protein* 8.8 g/dL (6.0-8.3)
[2024-06-18 09:53] LABS: C Reactive Protein* 0.7 mg/dL (0.5-1.0)
[2024-06-18 10:00] VITALS: PULSE 82; RESP 20; O2SAT 97
[2024-06-18 10:08] LABS: HCG Quantitative* < 2.39 mIU/mL
[2024-06-18] MEDS: droperidoL 2.5 MG/ML inj IV (10:08)
--- OUTSIDE RECORDS SUMMARY | 2024-06-18 10:36 | XMS_ITS | Clinical Summary ---
Author Organization [facility] Address [address] [place] [address] Care Team Providers Care Welder And Fitter Name Role Phone Elsewhere, Pcp Primary Care Provider Unavailabl e Source Comments Patient records contain information from all sites at [facility]. For routine questions regarding patient records, call [phone] during business hours, M-F 8:00 AM - 5:00 PM Central Time. Record requests for emergency care only can be directed to [phone] at any time.[facility] Allergies No known active allergies Medications Medication [...] on file Medical Devices Implanted Type Area Dry Cleaning Manager Device Identifier Shelf Expiration Date Model / Serial / Lot Ureteral Stent Ureteral Stent Left: Ureter Care Teams Welder And Fitter Relationship Specialty Start Date End Date Elsewhere, Pcp PCP - General Internal Medicine 05/24/23
--- OUTSIDE RECORDS SUMMARY | 2024-06-18 10:36 | XMS_ITS | Referral Summary ---
Author Organization [place] Address [address] [place] [address] Care Team Providers Care Director Of Development And Marketing Name Role Phone No Ref-Primary, Physician Primary [...] 170.2 cm (5' 7) 08/29/2011 2:01 PM 5TH GRADE TEACHER Body Mass Index 24 08/29/2011 2:01 PM 5TH GRADE TEACHER Plan of Treatment Not on file Procedures [...] LAB - BLOOD ORDERABL ES [facility] Acute Care Lab [address] Lab (1st floor, no room number) [place] [address], [facility] [phone] from Last 3 Months or Most Recently Relevant to Health Maintenance Care Teams Director Of Development And Marketing Relationship Specialty Start Date End Date No Ref-Primary, Physician PCP - General 12/08/17
--- OUTSIDE RECORDS SUMMARY | 2024-06-18 10:36 | XMS_ITS | Clinical Summary ---
Author Organization [place] Address [address] [facility] [address] Care Team Providers Care Mail Deliverer Name Role Phone No Ref-Primary, Physician Primary [...] 170.2 cm (5' 7) 08/29/2011 2:01 PM RING SEWER Body Mass Index 24 08/29/2011 2:01 PM RING SEWER Plan of Treatment Health Maintenance Due Date [...] Rojas MD LAB - BLOOD ORDERABL ES [facility] Acute Care Lab [address] Lab (1st floor, no room number) [place] [address], [facility] [phone] from Last 3 Months or Most Recently Relevant to Health Maintenance Care Teams Mail Deliverer Relationship Specialty Start Date End Date No Ref-Primary, Physician PCP - General 12/08/17
--- OUTSIDE RECORDS SUMMARY | 2024-06-18 10:36 | XMS_ITS | Referral Summary ---
Author Organization [facility] Address [address] [place] [address] Care Team Providers Care Quality Assurance Intern Name Role Phone Elsewhere, Pcp Primary Care Provider Unavailabl e Source Comments Patient records contain information from all sites at [facility]. For routine questions regarding patient records, call [phone] during business hours, M-F 8:00 AM - 5:00 PM Central Time. Record requests for emergency care only can be directed to [phone] at any time.[facility] Allergies No known active allergies Medications Medication [...] on file Medical Devices Implanted Type Area Food Processing Chemist Device Identifier Shelf Expiration Date Model / Serial / Lot Ureteral Stent Ureteral Stent Left: Ureter Care Teams Quality Assurance Intern Relationship Specialty Start Date End Date Elsewhere, Pcp PCP - General Internal Medicine 05/24/23
--- OUTSIDE RECORDS SUMMARY | 2024-06-18 10:36 | XMS_ITS ---
Author Organization [facility] Address [address] [place] [address] Care Team Providers Care Associate Professor Of Law Name Role Phone Unavailable Unavailable Unavailable Surgery Details Not on file Complications Check Surgery Details section. Procedure Estimated Blood Loss Check Surgery Details section. Procedure Findings Check Surgery Details section. Procedure Specimens Taken Check Surgery Details section.
[2024-06-18 11:00] VITALS: BP 119/82; PULSE 82; RESP 16; O2SAT 99
[2024-06-18] MEDS: HALOPERIDOL 5 MG/ML INJ IV (11:53)
[2024-06-18 12:00] VITALS: BP 114/71; PULSE 76; RESP 14; O2SAT 99
[2024-06-18 13:34] VITALS: BP 161/96; PULSE 82; RESP 14; TEMP 36.7
== END 2024-06-18 13:35 | disposition home or self-care (01) ==
PROVIDERS: Student in an Organized Health Care Education/Training Program; Emergency Provider Emergency Medicine Emergency Medical Services; PCP Family Medicine
DX: R11.15 Cyclical vomiting syndrome unrelated to migraine (principal)
CPT/HCPCS: 36415; 80053; 83690; 84702; 85025; 86140; 96374; 96375; 99283; J1630; J1790; J2060; J2405; J2470; J7030

== ENCOUNTER 2024-12-20 09:17 | Emergency (ER) | payer MEDICARE, BC, SELFPAY ==
--- OUTSIDE RECORDS SUMMARY | 2024-12-20 09:19 | XMS_ITS | Clinical Summary ---
Author Organization [place] Address [address] [facility] [place] [address] Care Team Providers Care Studio Operations Engineer In Charge Name Role Phone No Ref-Primary, Physician Primary Care Provider Allergies No known active allergies Medications methylprednisoL ONE (MEDROL DOSEPACK) 4 MG tablet Follow package directions. 1 Package 0 2 Active Additional Information Patient not taking.Reported on 12/08/2017 traMADol (ULTRAM) 50 MG tablet Take 1 tablet by mouth every 6 hours as needed for pain. 20 tablet 0 2 Active Additional Information Patient not taking.Reported on 12/08/2017 ibuprofen (ADVIL,MOTRIN) 200 MG tablet Take 3 tablets by mouth every 8 hours as needed for pain. 30 tablet 1 2 Active Additional Information Patient not taking.Reported on 12/08/2017 methylPREDNISol one (MEDROL DOSEPAK) 4 MG tabletIndicatio ns:Chest wall pain,Costochond ritis Follow package instructions 21 tablet 8 Active HYDROcodone-katalina taminophen (NORCO) 5-325 MG per tabletIndicatio ns:Costochondri tis,Chest wall pain Take 1-2 tablets by mouth nightly as needed 10 tablet 8 Active oxyCODONE (ROXICODONE) 5 MG tablet Take 1 tablet (5 mg) by mouth every 6 hours as needed for severe pain 10 tablet 3 Active Social History Tobacco Use Types Packs/Day Years Used Date Smoking Tobacco: Former Smokeless Tobacco: Never Alcohol Use Standard Drinks/Week Comments Yes 0 (1 standard drink = 0.6 oz pur e alcohol) Adolescent Education Answer Date Record ed Getting School Help Needed Not on file 06/24 Comments Unknown Sex and Gender Information Value Date Recorded Sex Assigned at Not on file Legal Sex Female 4:40 AM BOX BLANK MACHINE OPERATOR Gender Identity Not on file Sexual Orientation Not on file Last Filed Vital Signs Vital Sign Reading Time Taken Comments Blood Pressure 145/97 02/27/2023 9:35 PM CDT Pulse 107 02/27/2023 9:35 PM CDT Temperature 36.9 C (98.4 F) 02/27/2023 9:33 PM CDT Respiratory Rate 20 02/27/2023 9:33 PM CDT Oxygen Saturation 96% 02/27/2023 9:38 PM CDT Inhaled Oxygen Concentration - - Weight 69.5 kg (153 lb 4 oz) 12/08/2017 3:28 PM CDT Height 170.2 cm (5' 7) 08/29/2011 2:01 PM BOX BLANK MACHINE OPERATOR Body Mass Index 24 08/29/2011 2:01 PM BOX BLANK MACHINE OPERATOR Plan of Treatment Health Maintenance Due Date Last Done Comments ADVANCE CARE PLANNING 1985 ANNUAL REVIEW OF HM ORDERS 1985 YEARLY PREVENTIVE VISIT 1988 HIV SCREENING 2000 HEPATITIS C SCREENING 12/31/2003 HEPATITIS B IMMUNIZATION (1 of 3 - 19+ 3-dose series) 2004 PAP 2006 HPV IMMUNIZATION (2 - 3-dose series) 11/28/2007 10/31/2007 COVID-19 Vaccine (1 - 2023-2 5 season) 2024 INFLUENZA VACCINE (#1) 2024 PHQ-2 (once per calendar year) 2024 DIABETES SCREENING 02/27/2026 02/27/2023 DTAP/TDAP/TD IMMUNIZATION (4 - Td or Tdap) 07/02/2029 07/02/2019, 03/31/2015, 01/17/1998 ZOSTER IMMUNIZATION (1 of 2) 12/31/2035 MENINGITIS IMMUNIZATION Aged Out No l onger eligible based on patient's age to complete this topic Pneumococcal Vaccine: Pediatrics (0 to 5 Years) and At-Risk Patients (6 to 49 Years) Aged Out No longer eligible b [...] 8:08 PM CDT 02/27/2023 8:19 PM CDT us Octavio Rojas MD LAB - BLOOD ORDERABLES Final Result [facility] Acute Care Lab [address] Lab (1st floor, no room number) [place] [address], [facility] [phone] from Last 3 Months or Most Recently Relevant to Health Maintenance Care Teams Studio Operations Engineer In Charge Relationship Specialty Start Date End Date No Ref-Primary, Physician PCP - General 12/08/17
--- OUTSIDE RECORDS SUMMARY | 2024-12-20 09:19 | XMS_ITS | Data Portability ---
Author Organization [facility], [facility] Address [address] [facility] [address] [place] [address] Care Team Providers Care Reconciler Name Role Phone MARIO DANIELS Primary Care Provider [phone] Assessment No assessment recorded. Plan of Treatment Reminders Order Date Submit Date Provider Last Modified By Organization Details Last Modified Time Details Appointments None recorded . Lab None recorded . Referral None recorded . Procedures None recorded . Surgeries None recorded . Imaging US, kidney - to be done in 2-3 weeks. check for left hydronep hrosis. 023 06/03/20 SILVA [facility], [address], [place], [address], 17:10:07 Medication Orders None recorded . Patient TargetsNo targets recorded. Patient InstructionsNo instructions recorded. Reason for Referral None Reported. Results Created Date Observation Date Name Description Value Unit Range Abnormal Flag Note LastModifiedBy Organization Detail LastModifiedTime 06/23/2006/23/2023 , leno Chambers observ ation record ed. [email or web address] [facility] [address], [place], [address], 07/07/2023 11:09:42 Result Notes None recorded. Procedures Surgical History Date Name Laterality Status Provider Name and Address Organization Details Recorded Time 06/03/20 23 Cystoscopy with foreign body/stent removal completed Joe Alvarez MD [address] [facility],[address], [place], [address], [facility] 06/03/2023 13:07:46 06/10/20 11 Colonoscopy completed Patty Rincon [facility] 06/03/2023 12:27:14 Partial Hysterectomy completed Pattychuy Rincon [facility] 06/03/2023 12:27:23 Imaging Results Imaging Date Name Status LastModified by Organiz ation Details LastModified Time 06/23/2023 US, kidney completed [email or web address] Ismael Alvarez eld [address], [place], [address], 07/07/2023 11:09:42 Procedure Notes None recorded. Medical Equipment None Reported. Allergies No known drug allergies Medications Name Sig Start Date Stop Date Status Note LastModified by Organization Details LastModified Time medroxyprog esterone 10 mg tablet TAKE ONE TABLET BY MOUTH EVERY DAY FOR 10 DAYS 06/03 completed Not Available Not Available Not Available metformin 500 mg tablet TAKE ONE TABLET BY MOUTH EVERY DAY WITH A MEAL active Not Available Not Available No t Available doxycycline hyclate 100 mg capsule 06/03 completed Not Available Not Available Not Available trazodone 50 mg tablet TAKE ONE TABLET BY MOUTH AT BEDTIME NEEDED active Not Available Not Available No t Available prazosin 1 mg capsule TAKE ONE CAPSULE BY MOUTH EVERY DAY active Not Available Not Available No t Available ondansetron HCl 4 mg tablet TAKE ONE TO TWO TABLETS BY MOUTH EVERY 8 HOURS NEEDED FOR NAUSEA AND VOMITING 06/03 completed Not Available Not Available Not Available olanzapine 5 mg tablet TAKE ONE-HALF TABLET BY MOUTH THREE TIMES A DAY 06/03 completed Not Available Not Available Not Available venlafaxine ER 150 mg capsule,ext ended release 24 hr TAKE ONE CAPSULE BY MOUTH EVERY DAY WITH FOOD active Not Available Not Available No t Available olanzapine 10 mg tablet TAKE ONE-HALF TABLET BY MOUTH TWICE A DAY NEEDED FOR AGITATION active Not Available Not Available No t Available metronidazo le 500 mg tablet 06/03 completed Not Available Not Available Not Available olanzapine 2.5 mg tablet TAKE ONE TABLET BY MOUTH THREE TIMES A DAY NEEDED 06/03 completed Not Available Not Available Not Available ketorolac 10 mg tablet TAKE 1 TABLET BY MOUTH THREE TIMES DAILY NEEDED FOR PAIN active Not Available Not Available No t Available pantoprazol e 20 mg tablet,hari yed release TAKE ONE TABLET BY MOUTH EVERY DAY BEFORE A MEAL active Not Available Not Available No t Available lorazepam 0.5 mg tablet TAKE ONE TABLET BY MOUTH TWICE A DAY FOR ANXIETY 06/03 completed Not Available Not Available Not Available tamsulosin 0.4 mg capsule TAKE ONE CAPSULE BY MOUTH EVERY DAY 06/03 completed Not Available Not Available Not Available Lice Treatment (permethrin ) 1 % topical liquid APPLY ENOUGH TO SATURATE SCALP AND HAIR LEAVE ON FOR 10 MIN THEN RINSE 06/03 completed Not Available Not Available Not Available oxybutynin chloride 5 mg tablet TAKE ONE TABLET BY MOUTH THREE TIMES A DAY NEEDED 06/03 completed Not Available Not Available Not Available ondansetron 4 mg disintegrat ing tablet DISSOLVE ONE TABLET BY MOUTH EVERY 8 HOURS NEEDED FOR NAUSEA 06/03 completed Not Available Not Available Not Available prazosin 2 mg capsule TAKE ONE CAPSULE BY MOUTH AT BEDTIME active Not Available Not Available No t Available oxycodone 5 mg tablet 06/03 completed Not Available Not Available Not Available hydroxyzine pamoate 25 mg capsule TAKE ONE CAPSULE BY MOUTH EVERY DAY NEEDED FOR ANXIETY AND SLEEP active Not Available Not Available No t Available Vitals Date Recorded Body height Body mass index (BMI) Body weight Provider Name and Address Organization Details Last Updated DateTime 06/03/2023 167.64 cm 33.1 kg/m2 29057.44 g Patty Rincon [facility] 06/03/2023 12:23:27 Social History Question Answer Notes LastModified by Organizat ion Details LastModified Time Tobacco Smoking Status Current Some Day Smoker Patty Rincon [facility] 06/03/2023 12:26:38 What Is Your Level Of Alcohol Consumption? None Information not available 06/03/2023 What Is Your Level Of Caffeine Consumption? Occasional [email or web address] Information not available 06/03/2023 What Was The Date Of Your Most Recent Tobacco Screening? 06/03/2023 [email or web address] Information not available 06/03/2023 Do You Use Any Illicit Or Recreational Drugs? No [email or web address] Information not available 06/03/2023 Has Tobacco Cessation Counseling Been Provided? No [email or web address] Information not available 06/03/2023 Do You Or Have You Ever Used Any Other Forms Of Tobacco Or Nicotine? No [email or web address] Information not available 06/03/2023 Sex: Unknown Functional Status None recorded. Mental Status None recorded. Family History Relationship Description Onset Age of this Age Resolved Age Notes LastModified by Organization Details LastModified Time Unspecified Relation Family history of malignant neoplasm [email or web address] Not available 06/03 12:25:07 Medical History Condition Response Kidney Stones Y Depression Y Gynecological HistoryNo gynecological history recorded. Obstetrics History GPAL:G 0 P 0 0 0 0 Past Encounters Encounter ID Performer Location Encounter Start Date Encounter Closed Date Diagnosis/Indication Diagnosis SNOMED-CT Code Diagnosis ICD10 Code Diagnosis Note [id number] Joe Alvarez MD [facility] [address] [facility] [place] [address] 06/03/2023 11:36:16 06/03/2023 13:29:29 Hydronephrosis 21370907 N13.30 Obstruction of ureter 76 5454250 N13.5 Obstructio n of ureter during hysterecto my procedure suspected with placement of ureteral stent. She has done well after her surgery and the stent is now removed. I think a follow-up in a couple of weeks to check for hydronephr osis would be most appropriat e. Is not clear whether true obstructio n occurred during surgery as the stent did go in very easily so I suspect she will continue to feel well and if the ultrasound is negative for hydronephr osis no further work-up will be indicated. I have asked her to call if there is pain/fever /hematuria following stent removal. We will call with the ultrasound results. Health Concerns Section Related Observation LastModified by Organization Detai ls LastModified Time None Recorded Concern Status LastModified by Organization Details LastModified Time None Recorded Advance Directives Directive None Recorded Payers Encounter Date Sequence Insurance Name Policy Number Policy Small Covered Member ID Small Member ID Guarantor Name 06/03/2023 1 [place]MED[place] - [place]MO) [id number] Tarah William [id number] Tarah William Notes Date Note Type Note Provider Name and Address Organization Details Recorded Time 06/03/2023 text/html Returns to the clinic for follow-up of her ureteral stent placement during hysterectomy. She returns for stent removal. Feeling well after her prior surgery. No fevers or chills. The stent has been irritating and she is anxious to have it removed. I reviewed the previous data of his previous clinic visits and any records from his other physicians as well as imaging results and recent laboratory results Joe Alvarez MD [address] [place] [address],[address], [place], [address], [facility] 06/03/2023 13:09:50 OBGyn Episode No OBEpisode recorded.
--- OUTSIDE RECORDS SUMMARY | 2024-12-20 09:19 | XMS_ITS | Clinical Summary ---
Author Organization [employer] [facility] Address [address] [place] [address] Care Team Providers Care Decontamination Worker Name Role Phone Kendell Reeves Primary Care Provider [phone] Allergies No known active allergies Medications ondansetron (ZOFRAN) 4 mg tabletIndication s:Nausea and vomiting, unspecified vomiting type Take 1-2 Tablets (4-8 mg) by mouth every 8 hours if needed for Nausea/Vomiting. 30 Tablet 04/19/20 23 Active acetaminophen (TYLENOL) 325 mg tabletIndication s:S/P hysterectomy Take 1-2 Tablets (325-650 mg) by mouth every 4 hours if needed for Pain. Max acetaminophen dose: 4000mg in 24 hrs. 100 Tablet 05/18/20 23 Active ibuprofen (ADVIL; MOTRIN) 200 mg tabletIndication s:S/P hysterectomy Take 1-3 Tablets (200-600 mg) by mouth every 6 hours if needed for Pain. 100 Tablet 05/18/20 23 Active nicotine 14 mg/24 hr (NICODERM; HABITROL) 14 mg/24 hr patchIndications :Smoking Apply 1 Patch on dry, clean, hairless skin once daily. X 6 weeks 42 Patch 06/22/20 24 Active OLANzapine (ZyPREXA) 2.5 mg tabletIndication s:Depression, unspecified depression type Take 1 Tablet (2.5 mg) by mouth once daily if needed for Agitation. 30 Tablet 10/10/19 25 Active hydrOXYzine pamoate (VISTARIL) 50 mg capsuleIndicatio ns:Anxiety,Night terror,Sleep difficulties Take 1 Capsule (50 mg) by mouth at bedtime if needed for Anxiety (or sleep). 90 Capsule 2 11/07/19 25 Active lamoTRIgine 200 mg tabletIndication s:Depression, unspecified depression type Take 1 Tablet (200 mg) by mouth once daily. 90 Tablet 2 11/07/19 25 Active OLANzapine (ZyPREXA) 10 mg tabletIndication s:Depression, unspecified depression type Take 1 Tablet (10 mg) by mouth at bedtime. 30 Tablet 2 11/07/19 25 Active OLANzapine (ZyPREXA) 5 mg tabletIndication s:Depression, unspecified depression type Take 1 Tablet (5 mg) by mouth once daily in the morning. 90 Tablet 2 11/07/19 25 Active sertraline (ZOLOFT) 100 mg tabletIndication s:Depression, unspecified depression type Take 1 Tablet (100 mg) by mouth once daily. 30 Tablet 2 11/07/19 25 Active omeprazole 20 mg tabletIndication s:Persistent recurrent vomiting Take 1 Tablet (20 mg) by mouth once daily. Take 30 minutes prior to first meal of the day. 90 Tablet 12/01/19 25 Active omeprazole 20 mg tabletIndication s:Persistent recurrent vomiting Take 1 Tablet (20 mg) by mouth once daily. Take 30 minutes prior to first meal of the day. 90 Tablet 1 02/23/20 24 025 Discontin ued(Reord er (E-cancel not sent)) Active Problems Problem Noted Date Diagnosed Date Type 2 diabetes mellitus wit hout complication, without long-term current use of insulin 11/03/2023 Sleep difficulties 11/03/2023 Panic attack 12/17/2022 Anxiety 12/08/2021 Depression, recurrent 12/08/2021 PTSD (post-traumatic stress disorder) 12/08/2021 Night terror 12/08/2021 Anal fissure 06/02/2021 Nausea & vomiting 04/25/2020 Cyclic vomiting syndrome 04/25/2020 Marijuana use 04/25/2020 Hypokalemia 04/25/2020 Smoking 05/07/2019 Overview (05/07/2019): 05/07/19 Still smoking about 5 cigarettes per day, nicotine gum Vertigo Overview (11/25/2014): recurrent since age 18 Numbness and tingling of right face Overview (11/25/2014): last 8 years Resolved Problems Problem Noted Date Diagnosed Date Resolved Date Dichorionic diamniotic twin in third trimester 08/10/2019 06/22/2024 Severe preeclampsia, third trimester 08/09/2019 06/22/2024 Pre-eclampsia without severe features 07/30/2019 06/22/2024 Overview (08/06/2019): 07/30/19 152/92 on initial reading, then 130/80. Labs normal, PC ratio 0.2 08/06/19 158/110 on initial reading, then 158/98. Labs normal, PC ratio 0.3. Meets criteria for preeclampsia without severe features Threatened premature labor, antepartum 06/25/2019 06/22/2024 Dichorionic diamniotic twin 06/25/2019 06/22/2024 High risk , antepartum 04/30/2019 06/22/2024 Overview (05/04/2019): Lor, [employer], Toni, Father of babies, involved boyfriend Blood Type: O Rh Positive Genetic Screen: Level II Normal, Females! LMP: 12/07/18, Medical concerns: Di Di Twin , Cigarette smoker, Anxiety, Family history of diabetes-patient's father Ultrasound 1) 03/08/19 normal first trimester ultrasound at 12w6d with AUGUSTIN consistent with LMP 2) 04/23/19 normal FAS, anterior placentas. A: 296 grams (49%ile). B: 303 grams (54%ile). Transverse/Transverse GTT: Gender: Female/Female Pertussis Vaccine: Flu Vaccine: Dichorionic diamniotic twin in first trimester 03/08/2019 06/22/2024 Overview (07/02/2019): US -04/23/19 Normal FAS for di di twins. EFW A: 296, B: 303 grams, percentile: A: 49, B: 54. -06/04/49 Normal Growth US at 25w3d. EFW percentile: A: 36. B: 29. Cephalic, Transverse -07/02/19 Normal Growth US at 29w3d. EFW percentile: A: 47. B. 45. Transverse, transverse Encounter for screening 06/22/2024 Decreased movements in third trimester 06/22/2024 Encounters Date Type Department Care Team Description 11/28/2024 Refill [facility] [address] [facility] [address] Candi Vann, Refill Request ([email or web address]) 11/07/2024 9:45 AM PROCESS TREATER Telemedicine [facility] [address] [facility] [address] [place] [address] Fabi Multani NP Follow Up; Medication Management; Telehealth 10/18/2024 Telephone [facility] [address] [place] [address] Ai Fowler MBBS outreach (Diabetes) 10/10/2024 9:45 AM PROCESS TREATER Telemedicine [facility] [address] [facility] [address] [place] [address] Fabi Multani NP Telehealth; Medication Management (Pt states ran out of Sertraline one month ago, stopped Minipress-caused more nightmares. No supply of Hydroxyzine. Does have PRN Haldol, added to med list.) from Last 3 Months Immunizations Immunization Administration Dates Next Due Human Papilloma Virus Vaccine 10/31/2007 MMR 01/17/1998 Td (Age >=7 Years) 01/17/1998 Tdap 07/02/2019,03/31/2015 Family History Medical History Relation Name Comments Anxiety disorder Brother 1 Bipolar disorder Brother 1 at 32 Good Health Brother 1 X2 Anxiety disorder Brother 2 Diabetes Father COPD, chronic h epatitis Lung disease Father Cancer Maternal Uncle 2 removed rig ht arm Other Maternal Uncle 3 MS Anxiety disorder Mother Good [facility] Mother Cancer Paternal Aunt abdominal Anesthesia Problem No Family History Relation Name Status Comments Brother 1 Alive Brother 2 Alive Father Alive Half-Brother Alive Maternal Grandfather Maternal Grandmother Maternal Uncle 1 Alive Maternal Uncle 2 Maternal Uncle 3 Mother Alive Paternal Aunt Sister Alive Social History Tobacco Use Types Packs/Day Years Used Date Smoking Tobacco: Some Days Cigarettes Smokeless Tobacco: Never Tobacco Cessation:Ready to Q uit: Not Asked; Counseling Given: Not Answered Comments:0-5 cigs per day, sometimes can go a day without; 10/10/24 Alcohol Use Standard Drinks/Week Comments Yes 0 (1 standard drink = 0.6 oz pur e alcohol) 1x a month or less; 10/10/24 PHQ-2 Answer Date Recorded PHQ-2 TOTAL SCORE 2 11/07/2024 Social Connections Answer Date Recorded Do you often feel lonely or isolated from those around you? 0 06/15/2024 Financial Resource Strain Answer Date R ecorded Difficulty of Paying Living Expenses 3 06/15/2024 Difficulty of Paying Living Expenses Not on file 06/15/2024 Food Insecurity Answer Date Recorded Do you worry your food will run out before you are able to buy more? 1 06/15/2024 Transportation Needs Answer Date Record ed Does lack of transportation keep you from medica l appointments? 1 06/15/2024 Does lack of transportation keep you from work, meetings or getting things that you need? 1 06/15/2024 Housing Stability Answer Date Recorded What is your housing situation today? 1 06/15/2024 Utilities Answer Date Recorded Do you have trouble paying f or utilities (for example, heat, electricity, water, phone)? 1 06/15/2024 Comments No Sex and Gender Information Value Date Recorded Sex Assigned at Not on file Legal Sex Female 5:23 AM PROCESS TREATER Gender Identity Female 03/15/2020 1:52 AM CDT Sexual Orientation Straight 03/15/2020 1: 52 AM CDT Obstetrics History Para Term AB IAB SAB Ectopic Multiple Livin g Live Births 1 1 0 1 0 0 0 0 1 2 2 Date Outcome GA Total Labor Labor/2nd/3rd Weight Sex Type Anes PTL Niki A1 A5 Name Clin 2018 34w 6d F CS-LT ranv Spinal N Livin g Temitope Mckeon Complications:Preeclampsia ( HC) 2018 34w 6d F CS-LT ranv Spinal N Livin g Marva Delivery Location:[facility] (UTD 2000 MB L&D TRIAGE) Last Filed Vital Signs Vital Sign Reading Time Taken Comments Blood Pressure 100/66 06/15/2024 11:55 AM CDT Pulse 67 06/15/2024 11:55 AM CDT Temperature 36 C (96.8 F) 05/18/2023 11:00 AM CDT Respiratory Rate 16 05/18/2023 12:30 PM CDT Oxygen Saturation 96% 06/15/2024 11:55 AM CDT Inhaled Oxygen Concentration - - Weight 94.3 kg (208 lb) 06/15/2024 11:55 AM CDT Height 166.4 cm (5' 5.51) 06/15/2024 11:55 AM C DT Body Mass Index 34.07 06/15/2024 11:55 AM CDT Plan of Treatment Upcoming Encounters Date Type Department Care Team (Late st Contact Info) Description 02/19/2025 8:30 AM CDT Office Visit [facility] [address] [place] [address] Hussein Doe MD [address] [place] [address] Scheduled Procedures Name Priority Associated Diagnoses Date/Ti me SURGICAL PROCEDURE (TYPE PROCEDURE DESCRIPTION BELOW) Abdominal pain, unspecified abdominal location Persistent recurrent vomiting Health Maintenance Due Date Last Done Comments Hepatitis B series for Diabe kate (1 of 3 - 19+ 3-dose series) 2004 Pneumococcal series for age 6-49 (1 of 2 - PCV) 2004 COVID-19 vaccine series (2023- season) 2024 Influenza Vaccine (#1) 2024 BMI (ht and wt on same day) for age 18+ 06/15/2025 06/15/2024, 10/04/2023, 05/02/2023, Additional history exists Depression screening for age 12+ 11/07/2025 11/07/2024, 10/10/2024, 06/22/2024, Additional history exists Tetanus booster 07/02/2029 07/02/2019, 07/02/2015, 01/17/1998 HIV for age 15-65 Completed 02/26/2019, 03/31/2015 Hepatitis C screening for ag e 18-79 Completed 02/26/2019 Tdap Completed 07/02/2019, 03/31/2015 Medical Devices Implanted Type Area Embossing Machine Operator Helper Device Identifier Shelf Expiration Date Model / Serial / Lot Stent Uret [id number] Percuflex Hydroplus - [id number] Implanted:Qty: 1 on 05/18/2023 by Jeny Quinn MD at [facility] Left: [place] [facility] 12/12/2025 [id number] / / [id number] Procedures Procedure Name Priority Date/Time Associated Diagnosis Comments ANTI HIV 1/2 Routine 02/26/2019 2:52 PM CDT Twin gestation in first trimester, unspecified multiple gestation type (HC) ANTI HCV Routine 02/26/2019 2:52 PM CDT Twin gestation in first trimester, unspecified multiple gestation type (HC) from Last 3 Months or Most Recently Relevant to Health Maintenance Results * ANTI HCV (02/26/2019 2:52 PM CDT) HEPATITIS C ANTIBODY Non-React ashleigh Non-React ashleigh 02/26/2019 10:21 PM CDT [facility] Comment:Antibodies to HCV no t detected; does not exclude the possibility of exposure to HCV. Blood BLOOD SPECIMEN / Unknown Venipuncture / Unknown 02/26/2019 2:52 PM CDT 02/26/2019 2:53 PM CDT Lula MCGUIRE SEND OUTS Final R [facility] [address] [place] [address], * ANTI HIV 1/2 (02/26/2019 2:52 PM CDT) HIV-1/HIV-2 ANTIBODY Non-Reacti ve Non-Reacti ve 02/26/2019 10:27 PM CDT [facility] Comment:HIV-1 p24 and HIV-1/ HIV-2 Ab not detected. Blood BLOOD SPECIMEN / Unknown Venipuncture / Unknown 02/26/2019 2:52 PM CDT 02/26/2019 2:53 PM CDT us Lula MCGUIRE SEND OUTS Final R esult [facility] [address] [place] [address], [place] from Last 3 Months or Most Recently Relevant to Health Maintenance Insurance [facility] Member Subscriber Plan / Payer (Ef fective 2023-Present) Name:Tarah William Relation to Subscriber:Self Name:Tarah William Payer ID:[id number] (NAIC) Group ID:[id number] Type:Not on file Address: [address] Advance Directives * Full Code (Latest Code Status on File) Date Activated Date Inactivated Comments 05/18/2023 6:03 AM 05/18/2023 3:08 PM Question Answer Comments Code Status Discussion: Reviewed Preferences * Full Code Date Activated Date Inactivated Comments 04/25/2020 12:14 PM 04/27/2020 1:39 PM * Full Code Date Activated Date Inactivated Comments 08/09/2019 7:38 PM 08/14/2019 12:26 PM Care Teams Decontamination Worker Relationship Specialty Start [place] [address] [place] [address] PCP - General Physician Figure Refinisher And Repairer 10/18/24
--- OUTSIDE RECORDS SUMMARY | 2024-12-20 09:19 | XMS_ITS | Clinical Summary ---
Author Organization [facility] Address [address] [place] [address] Care Team Providers Care Health Policy Analyst Name Role Phone Found, No Pcp MD Primary Care Provider Unavailab le Source Comments You are receiving this document as you are listed as the primary care provider,follow-up provider, or the patient has been referred to you for consultation.This is in compliance with the Medicare andMedicaid EHR Incentive Program,which states Providers who transition their patient to another setting of careor provider of care or refers their patient to another provider of care shouldprovide summary care record for each transition of care or referral. [employer] Allergies No known active allergies Medications glycopyrrolate (AKA ROBINUL) 1 MG tablet Take 1 mg by mouth three times a day. Active aluminum & magnesium hydroxide (AKA ALAMAG) 200-200 MG/5ML suspension Take 5-10 mL by mouth every 6 hours as needed (for stomach pain or heartburn symptoms). 360 mL 0 6 Active Additional Information Patient not taking.Reported on 06/30/2023 hydrOXYzine pamoate (VISTARIL) 50 MG capsule Take 1 Capsule (50 mg) by mouth daily as needed. 3 Active traZODone (DESYREL) 50 MG tablet Take 1 Tablet (50 mg) by mouth daily at bedtime. Active prazosin (MINIPRESS) 2 MG capsule Take 3 mg by mouth every evening. Active venlafaxine (EFFEXORXR) 150 MG 24 hour release capsule Take 1 Capsule (150 mg) by mouth daily. Active OLANZapine (ZYPREXA) 10 MG tablet Take 1 Tablet (10 mg) by mouth every evening. Active Active Problems No known active problems Social History Tobacco Use Types Packs/Day Years Used Date Smoking Tobacco: Never Assessed Comments Unknown Sex and Gender Information Value Date Recorded Sex Assigned at Not on file Legal Sex Female 12:32 PM CDT Gender Identity Not on file Sexual Orientation Not on file Last Filed Vital Signs Vital Sign Reading Time Taken Comments Blood Pressure 136/88 03/01/2016 11:08 AM CDT Pulse 68 03/01/2016 11:08 AM CDT Temperature 36.3 C (97.4 F) 03/01/2016 11:08 AM CDT Respiratory Rate 16 03/01/2016 11:08 AM CDT Oxygen Saturation 100% 03/01/2016 11:08 AM CDT Inhaled Oxygen Concentration - - Weight - - Height - - Body Mass Index - - Plan of Treatment Health Maintenance Due Date Last Done Comments Cervical Cancer Screening Due 1985 Hep C Screening (Preventive Services) 1985 HIV Screening (Preventive Services) 2001 Adult Preventive Visit 12/31/2003 HepB (1) 2004 HPV Vaccine (2 - 3-dose series) 11/28/2007 10/31/2007 COVID-19 Vaccine (2023-2 5 season) 2024 Influenza (#1) 2024 DTaP/Tdap/Td (4 - Tdap) 07/02/2029 07/02/20 19, 03/31/2015, 01/17/1998 Zoster/Shingles (1 of 2) 12/31/2035 HepA Aged Out No longer eligi ble based on patient's age to complete this topic Hib Aged Out No longer eligi ble based on patient's age to complete this topic IPV (Polio) Aged Out No longer eligi ble based on patient's age to complete this topic MCV4 Aged Out No longer eligi ble based on patient's age to complete this topic Meningococcal B Aged Out No longer el igible based on patient's age to complete this topic Pneumococcal Aged Out No longer eligi ble based on patient's age to complete this topic Care Teams Health Policy Analyst Relationship Specialty Start Date End Date Found, No Pcp, [address] [place] [address] PCP - General 03/01/16
--- OUTSIDE RECORDS SUMMARY | 2024-12-20 09:19 | XMS_ITS | Continuity of Care Document ---
Author Organization [facility] Address [address] [address] [place] [address] Phone Care Team Providers Care Broadcast Transmitter Operator Name Role Phone Unavailable Unavailable Unavailable Allergies, Adverse Reactions, Alerts Substance Reaction Status Criticality No Known Allergies Active No Inform ation Medications Medication Instructions Dosage Effective Dates (start - stop) Status Comments omeprazole 40 mg capsule,delayed release take 1 capsule by oral route every day before a meal 40 MG - Active nortriptyline 10 mg capsule take 1 capsule by oral route every day at bedtime 10 MG - Active omeprazole 20 mg capsule,delayed release take 1 Capsule by ORAL route every day - No Longer Active Procedures Procedure Date Offic/outpt E&m Estab Low-mod 7 Colonoscopy Flex; W/bx 1/mx Ugi Endo; W/bx 1/mx Level Iv-surg Path Gross/micro 17 Office Cons New/estab Mod Routine Serum Collection C-reactive Prot Bld Ct; Hg/pltlt Ct Auto/compl 17 Advance Directives Directive Yes / No Effective Date File Name No Information Encounters Encounter Description Practice Location Reason(s) For Visit Diagnoses Date Provider Providers Copied on Encounter Offic/outpt E&m Estab Low-mod [facility], [address] [address], [place], [place], [id number], tel:[phone] [facility] GI Symptoms or Concerns (chief complaint) HeartburnDiarr hea, unspecified type 7 No Information Kat William MD. tel:[phone] [facility], [address] [address], [place], [id number], [place] tel:[phone] [facility] Diarrhea, unspecified typeHeartburnD iarrhea, unspecifiedDia rrhea, unspecifiedHea rtburn No Information Office Cons New/estab Mod [facility], [address] [address], [place], [id number], tel:[phone] [facility] GI Symptoms or Concerns (chief complaint) Diarrhea, unspecified typeRectal bleedingGastro esophageal reflux disease, esophagitis presence not specifiedRight lower quadrant abdominal tenderness without rebound tenderness No Information Family History Family Member Type Diagnosis Age At Onset Half brother (P) Problem (finding) Alive and well Father Problem (finding) Maternal history of anish betes mellitus Mother Problem (finding) Alive and well Half sister (P) Problem (finding) Alive and well Father Problem (finding) Hepatitis Father Problem (finding) pulmonary emphysema Brother Problem (finding) Alive and well Payers Payer name Insurance type Covered democrat ID Authorsuzannaa tikendra(s) [employer] [place] [id number] Social History Type Description Quantity Date Captured Comments Alcohol Use Details Caffeine Use Details Unknown Tobacco Use Status Smoking Status Current every day smoker Non-Smoking Tobacco Use Details : No Details Available : No Details Available Sex Female Vital Signs Date / Time: Height Weight BMI Pulse Rate Blood Pressure Temperature Respiratory Rate Body Surface Area Head Circumference Head Circ. Percentile Wt./Kristian. Percentile BMI percentile Pulse Ox Inhaled Ox 3:20 PM 66.00 in 69.490 kg (153.20 lbs) 24.7 3 kg/m eter (2) 78 /min 117/77 mm[Hg] Chief Complaint And Reason For Visit From encounter dated '08/03/2017 15:30'. GI Symptoms or Concerns (chief complaint). Description: Ms. William is a 31 yo female presenting infollow up regarding diarrhea and heartburn.She has been having heartburn symptoms for many years. She feels a burning sensation through substernal chest especially after eating. She was taking Omeprazole daily and this has helped slightly but did not completely resolve symptoms. She ran out 5 days ago and it was worse off of the medication. Since she ran out has been taking Tums which only helps for a few minutes. She had EGD completed on 07/27/17 that was unremarkable including duodenal biopsies. She denies NSAID use.Her second issues is that she has had diarrhea for the last few years. She has loose stools between 1-8 times a day. She was having rectal bleeding when seen in clinic at last office visit raising the concern of IBD. Colonoscopy including TI evaluation was unremarkable and random colon biopsies were normal. CBC and CRP were normal. She continues to have loose stools but bleeding has resolved. 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 She does admit to some increased stress recently but is not sure this has worsened GI symptoms Reason For Referral Reason For Referral No Information History Of Present Illness Encounter Date Complaint History Of Prese nt Illness GI Symptoms or Concerns Ms. Kristopher manriquez is a 31 yo female presenting in follow up regarding diarrhea and heartburn.She has been having heartburn symptoms for many years. She feels a burning sensation through substernal chest especially after eating. She was taking Omeprazole daily and this has helped slightly but did not completely resolve symptoms. She ran out 5 days ago and it was worse off of the medication. Since she ran out has been taking Tums which only helps for a few minutes. She had EGD completed on 07/27/17 that was unremarkable including duodenal biopsies. She denies NSAID use.Her second issues is that she has had diarrhea for the last few years. She has loose stools between 1-8 times a day. She was having rectal bleeding when seen in clinic at last office visit raising the concern of IBD. Colonoscopy including TI evaluation was unremarkable and random colon biopsies were normal. CBC and CRP were normal. She continues to have loose stools but bleeding has resolved. 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 She does admit to some increased stress recently but is not sure this has worsened GI symptoms GI Symptoms or Concerns This pat elias comes in for consultation regarding chronic diarrhea and recent rectal bleeding as well as heartburn and episodic vomiting. The patient says that she has had problems with diarrhea for more than a year. She will have four to six loose bowel movements in a day. She is awakened at night with the need for bowel movements. There is a sense of extreme urgency to have a bowel movement. She rarely notes blood; however, very recently she had excessive bright red blood per rectum with every bowel movement for about a week. She noticed blood dripping into the toilet from her bottom. This finally stopped. She complains of significant suprapubic pain particularly before bowel movements and occasionally some pain in her rectum. She has heartburn frequently and uses omeprazole. She says that she has very low threshold for vomiting and will sometimes regurgitate or vomit when she bends over. She denies dysphagia. There has been no significant weight loss. She also denies fevers Functional Status Date Functional Assessmen t No Information Instructions Date Instruction Additional Infor matpatricia I suspect that the s ymptoms are functional related to hypersensitive nerves/irritable bowel. I will request stool studies, imaging and thyroid tests from the outside offices. We will start nortriptyline at bedtime. Start 1 tablet at bedtime. If no side effects (drowsiness in AM) and still having pain/diarrhea, then you can increase to 2 tablets in 2 weeks. Follow up in 2 months. If no improvement, then we can consider MR enterography. Restart omeprazole. Related to Heartburn Gastroesophageal Reflux Disease Related to Heartburn Assessments Type Assessment Date assessment Heartburn assessment Diarrhea, unspecified type impression Chronic GI symptoms including heartburn, diarrhea with normal work up outlined above. I will request results of outside work up. At this point, I suspect this is a functional issue. We discussed options including MR enterography but patient would like to try nortriptyline first and MRI if no improvement. We also discussed Bentyl but she would like to avoid given her issues with dizziness. We will start nortriptyline at bedtime and titrate up as needed in addition to restarting omeprazole. She will follow up in 2 months or sooner as needed. We can consider low FODMAPs diet pending response to above in addition to consider small bowel imaging with MR enterography, stool studies and thyroid tests pending results of previous work up. Mental Status Date Cognitive Assessment Orientation - [place] ed to time, place, person, situation. Patient Care Teams Name Effective Dates (start - stop) Status Members No Information
--- OUTSIDE RECORDS SUMMARY | 2024-12-20 09:19 | XMS_ITS | Clinical Summary ---
Author Organization [facility] Address [address] , [address] [place] [address] Phone Care Team Providers Care Buyer Assistant Name Role Phone [facility] Unavailable Unava ilable Conditions or Problems Problem Name Problem Code Onset Date Status Entry Date Provider Comment Standard Description Annotate Visual distortion 848395550 (SNOMED CT) Active 11/04 Elvia Alexis MD Visual distortion of perception of shape Abnormal brain MRI 699514818 (SNOMED CT) Active 11/04 Elvia Alexis MD Magnetic resonance imaging of brain abnormal Muscle spasm 68889631 (SNOMED CT) Active 11/04 Elvia Alexis MD Spasm Elevated liver enzymes 922180186 (SNOMED CT) Active 11/04 Elvia Alexis MD Liver enzymes outside reference range Leg numbness, right 608260834 (SNOMED CT) Resolved 10/17 Elvia Alexis MD Numbness of limbs Vertigo 992953101 (SNOMED CT) Active 11/04 Elvia Alexis MD Vertigo Numbness paresthesia 97602845 (SNOMED CT) Active 11/04 Elvia Alexis MD Numbness Meralgia paresthetica, right 68795890 (SNOMED CT) Active 11/04 Elvia Alexis MD Meralgia paresthetica Leg numbness, right 792155902 (SNOMED CT) Removed 10/17 Elvia Alexis MD Numbness of limbs Medications Medication Instructions Start Date Stop Date Generic Name NDC Provider OLANZAPINE 2.5 MG TABS Take 1 tablet by mouth three times a day as needed 7 olanzapine [id number] Elvia Alexis MD VENLAFAXINE HCL ER 150 MG [id number] Take 1 capsule (150mg) by mouth once daily with food. 3 venlafaxine 85147590257 QIEUSER QIEUSER PRAZOSIN HCL 2 MG CAPS Take 1 capsule (2mg) by mouth every night at bedtime. 3 prazosin 38895324197 QIEUSER QIEUSER PRAZOSIN HCL 1 MG CAPS Take 1 capsule (1mg) by mouth once daily. 3 prazosin 89528510446 QIEUSER QIEUSER PANTOPRAZOLE SODIUM 20 MG TBEC Take 1 Tablet (20 mg) by mouth once daily before a meal. 6 pantoprazole 91183195546 QIEUSER QIEUSER OLANZAPINE 2.5 MG TABS Take 1 tablet (2.5mg) by mouth 3 times daily as needed. 7 olanzapine 60650202895 QIEUSER QIEUSER OLANZAPINE 2.5 MG TABS Take 1 tablet (2.5mg) by mouth 3 times daily as needed. 3 olanzapine 34556252881 QIEUSER QIEUSER METFORMIN HCL 500 MG TABS Take 1 Tablet (500 mg) by mouth once daily with a meal. 9 metformin 53083632508 QIEUSER QIEUSER Medications Administered No information available. Allergies, Adverse Reactions, Alerts No information available. Results Date Name Value Unit Range Flag Description Office Visit: ABNORMAL MRI m ail MEDS REVIEW Done Documenta tion of current medications (procedure) Replaced Document: (P) HEPAT IC FUNCTION PANEL, CREATINE KINASE, TOTAL, LUPUS AN ... COPPER SER * ug/mL copper, bl ood LIVAN * U/L Angiotensin converting enzyme [Enzymatic activity/volume] in Serum or Plasma SSB * Sjogren's syn drome-B, extractable nuclear Ab, serum SSA * Sjogren's syn drome-A, extractable nuclear Ab, serum RHEUMOT FACT * [iU]/mL Rheumato id factor [Units/volume] in Serum or Plasma CERULOPLASMI * mg/dL cerulopl asmin, serum ANASCR IFA * TRAVIS SCREEN , IFA LYME DIS AB * Borrelia burgdorferi.VlsE1+pep C10 Ab [Units/volume] in Serum by Immunoassay [id number] * GE use only - for Link[employer] import when terms are not otherwise specified PTT LA * PTT-LA LUPUS INHIB * LUPUS ANT ICOAGULANT (PT; PPP; QN; ) CPK 63 U/L 29-143 N Creatine duke se [Enzymatic activity/volume] in Serum or Plasma SGPT (ALT) 42 U/L 6-29 H Alanine aminotransferase [Enzymatic activity/volume] in Serum or Plasma SGOT (AST) 31 U/L 10-30 H Aspartate aminotransferase [Enzymatic activity/volume] in Serum or Plasma ALK PHOS 93 U/L 31-125 N Alkaline carlos sphatase [Enzymatic activity/volume] in Blood BILI INDIREC 0.1 MG/DL (CALC) mg/dL 0.2-1.2 L bilirubin, serum , indirect BILI DIRECT 0.1 mg/dL < OR = 0.2 N Biliru bin.direct [Mass/volume] in Serum or Plasma BILI TOTAL 0.2 mg/dL 0.2-1.2 N Bilirubin. total [Mass/volume] in Serum or Plasma A/G RATIO 1.6 (calc) 1.0-2.5 N Albumin/ Globulin [Mass Ratio] in Serum or Plasma GLOBULIN TOT 2.8 G/DL (CALC) g/dL 1.9-3.7 N Globulin [Mass/volume] in Serum ALBUMIN 4.4 g/dL 3.6-5.1 N Albumin [Mass /volume] in Serum or Plasma PROTEIN, TOT 7.2 g/dL 6.1-8.1 N Protein [Mass/volume] in Serum or Plasma Internal Other: Verbal Autho rization/Emergency Contact - OBS VERBAL_EMER DONE Verbal au thorization and emergency contact Internal Other: Authorizatio n - OBS [email or web address] Yes Authoriza tion: Release of Information - Authorize [facility] - Payment and Healthcare Operations ROIAUTHOTHER Yes Authoriz ation: Release of Information - Authorize Others/Insurance - Payment and Healthcare Operations HIECONSENT Yes Consent To Release information to the Health Information Exchange (HIE) [email or web address] Yes Authorizat ion: Authorization for [facility] to leave messages, voicemail, send text messages, send emails AUTHRELHCARE Yes Authoriz ation: Release/Retrieval of Information to/from Healthcare Facilities, Pharmacy Benefit Payers and Providers AUTHPRIVPRAC Yes Authoriz ation: Notice of privacy practices AUTHBENEFIT Yes Authoriza tion: Assignment of Benefits and Payment Agreement Plan of Care Type Date Detail Pending order Follow up as nee ded Pending order MRI-Cervical W/W O MS Protocol Pending order MRI-Thoracic W/W O MS Protocol Pending order Follow up Extend ed in clinic or telemedicine Pending order Other Referral Pending order Hepatic Function Panel (7) Pending order CK (Creatine Kin ase) Total Pending order LIVAN (Angiotensin Converting Enzyme) Pending order TRAVIS Pending order Lyme Total Ab w/ Reflex (reflex to Western Blot) Pending order Lupus Anticoagul ant Screen Pending order Rheumatoid (RA) Factor Pending order Sjogren's Ab - S SA/SSB (ANTI-Ro/ANTI-La) Pending order Ceruloplasmin Pending order Copper Pending order LP-Lumbar Punctu re Pending order Angiotensin-1 Co nverting Enzyme CSF Pending order Cell Count & Dif f CSF Pending order Cytology (test f or malignant cells) CSF Pending order Enterovirus PCR CSF Pending order Glucose CSF Pending order Lyme PCR CSF (B. burgdorferi) Pending order Gram Stain CSF Pending order Total Protein CS F Pending order Multiple Scleros is Screen CSF w/Serum (lab appt needed) Procedures Code Procedure Name Date Entry Date ORDERS Follow up as needed [id number] MRI-Cervical W/WO MS Protocol [id number] MRI-Thoracic W/WO MS Protocol CPT-75954 MRI Cervical W/WO CPT-Y0816F ProHance Gadolinium- based MR Contrast - 20 ml vial CPT-76431 MRI Thoracic W/WO CPT-Y4651X ProHance Gadolinium- based MR Contrast - 20 ml vial ORDERS Lupus Anticoagulant Screen 2 ORDERS Angiotensin-1 Converting Enzyme CSF 09/03 ORDERS Cell Count & Diff CSF / ORDERS Cytology (test for malignant cells) CSF 2 ORDERS Enterovirus PCR CSF ORDERS Glucose CSF ORDERS Lyme PCR CSF (B. burgdorferi) ORDERS Gram Stain CSF ORDERS Total Protein CSF ORDERS Multiple Sclerosis S creen CSF w/Serum (lab appt needed) ORDERS Follow up Extended i n clinic or telemedicine [id number] Other Referral [id number] LP-Lumbar Puncture 9 [id number] Documentation of current medicatio ns ORDERS Hepatic Function Panel (7) 2 ORDERS CK (Creatine Kinase) Total 2 ORDERS LIVAN (Angiotensin Converting Enzyme) 09/03 ORDERS TRAVIS ORDERS Lyme Total Ab w/Refl ex (reflex to Western Blot) ORDERS Rheumatoid (RA) Factor 09/03 ORDERS Sjogren's Ab - SSA/SSB (ANTI-Ro/ANTI-La) ORDERS Ceruloplasmin ORDERS Copper CPT-63391 Nerve Conduction 3-4 studies CPT-17642 EMG with NCS (5+ muscles) - 1 limb 10/17 Vital Signs Date Name Value Unit Description Weight Measured 190 [lb_av] weight E& M Weight Measured 190 [lb_av] weight E& M Immunizations No information available. Advance Directives No information available.
--- OUTSIDE RECORDS SUMMARY | 2024-12-20 09:19 | XMS_ITS | Clinical Summary ---
Author Organization [facility] Address [address] [place] [address] Care Team Providers Care Duck Operator Name Role Phone Elsewhere, Pcp Primary Care Provider Unavailabl e Source Comments Patient records contain information from all sites at [facility]. For routine questions regarding patient records, call [phone] during business hours, M-F 8:00 AM - 5:00 PM Central Time. Record requests for emergency care only can be directed to [phone] at any time.[facility] Allergies No known active allergies Medications acetaminophen (TYLENOL) 325 mg tablet Take 650 mg by mouth every 4 (four) hours as needed for moderate pain or score 4-6 of 10. 3 Active escitalopram (LEXAPRO) 20 mg tablet Take 20 mg by mouth daily. 1 Active hydrOXYzine (VISTARIL) 25 mg capsule Take 25 mg by mouth daily. 3 Active ibuprofen (ADVIL,MOTRIN) 200 mg tablet Take 600 mg by mouth every 6 (six) hours as needed for moderate pain or score 4-6 of 10. 3 Active melatonin 3 mg tablet Take 9 mg by mouth at bedtime as needed for sleep. 3 Active metFORMIN (GLUCOPHAGE) 500 mg tablet Take 500 mg by mouth daily with breakfast. 3 Active OLANZapine (ZyPREXA) 2.5 mg tablet Take 5 mg by mouth 2 (two) times a day. 2 Active ondansetron ODT (ZOFRAN-ODT) 4 mg disintegrating tablet Dissolve 4 mg in the mouth every 8 (eight) hours as needed for nausea. Active oxyCODONE (ROXICODONE) 5 mg immediate release tablet Take 5 mg by mouth every 4 (four) hours as needed for severe pain or score 7-10 of 10. 3 Active pantoprazole (PROTONIX) 20 mg EC tablet Take 20 mg by mouth every morning before breakfast. 3 Active prazosin (MINIPRESS) 2 mg capsule Take 2 capsules by mouth at bedtime. 3 Active prazosin (MINIPRESS) 1 mg capsule Take 1 mg by mouth daily. 3 Active traZODone (DESYREL) 50 mg tablet Take 50 mg by mouth at bedtime as needed for sleep. 3 Active venlafaxine XR (EFFEXOR-XR) 150 mg 24 hr capsule Take 150 mg by mouth daily with breakfast. 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 Gender Identity Not on file Sexual Orientation Not on file Last Filed Vital Signs Vital Sign Reading Time Taken Comments Blood Pressure 146/91 05/24/2023 6:05 PM CDT Pulse 97 05/24/2023 6:05 PM CDT Temperature 36.7 C (98.1 F) 05/24/2023 6:05 PM CDT Respiratory Rate 16 05/24/2023 6:05 PM CDT Oxygen Saturation 97% 05/24/2023 6:05 PM CDT Inhaled Oxygen Concentration - - Weight - - Height 167.6 cm (5' 6) 05/24/2023 6:07 PM CDT Body Mass Index - - Plan of Treatment Not on file Medical Devices Implanted Type Area Washing Machine Loader Device Identifier Shelf Expiration Date Model / Serial / Lot Ureteral Stent Ureteral Stent Left: Ureter Insurance [facility] Care Teams Duck Operator Relationship Specialty Start Date End Date Elsewhere, Pcp PCP - General Internal Medicine 05/24/23
[2024-12-20 09:31] VITALS: BP 114/75; PULSE 91; RESP 20; TEMP 37; O2SAT 97; BMI 32.0
--- NOTE | 2024-12-20 10:02 | ED_ITS ---
HPI - General Adult General Date Seen: 12/20/24 Chief complaint: Fever Stated complaint: Chills, cough, body aches Time Seen by Provider: 12/20/24 10:01 History of Present Illness HPI narrative: 38-year-old female who presents to the ED today and is accompanied by her 2 children who are also being seen. She reports that she has had fever, chills, body ache, cough, ongoing for 2 days. She has a past medical history of PTSD, depression/anxiety, cyclic vomiting syndrome. She has no history of diabetes, cancer, immunosuppression, asthma. She is here with her 2 5-year-old twin daughters. They have all been sick since about Tuesday morning with symptoms that include fever, headache, body aches, chills, fatigue and decreased energy, cough. Patient also has a bit of a sore throat. She suspects that the 3 of them probably picked up an illness with a were traveling to a water park in [place]. They got home about 4 days ago. She has not have any trouble urinating. She sometimes is nauseous but not vomiting. No diarrhea. Normal urine output. Related Data Home Medications ?Medication ?Instructions ?Recorded ?Confirmed olanzapine 10 mg tablet 10 mg PO QPM 04/22/23 12/20/24 ondansetron HCl 4 mg tablet PO 04/22/23 pantoprazole 20 mg tablet,delayed 20 mg PO DAILY 04/22/23 04/22/23 release olanzapine 5 mg tablet 5 mg PO QPM 12/20/24 12/20/24 omeprazole 20 mg capsule,delayed 20 mg PO DAILY 12/20/24 12/20/24 release sertraline 50 mg tablet 50 mg PO DAILY 12/20/24 12/20/24 trazodone 50 mg tablet PO 12/20/24 Previous Rx's ?Medication ?Instructions ?Recorded lorazepam 0.5 mg tablet 0.5 mg PO BID PRN #5 tabs 04/22/23 haloperidol 5 mg tablet 5 mg PO DAILY PRN agitation #10 06/18/24 tabs Allergies Allergy/AdvReac Type Severity Reaction Status Date / Time No Known Drug Allergies Allergy Verified 06/18/24 08:58 PFSH PFS Social History Smoking Status: Current some day smoker Do you use any of these nicotine containing products: None How often do you have a drink containing alcohol: never How often do you have six or more drinks on one occasion: Less than monthly AUDIT-C Alcohol total score: 1 Non-prescribed substance use: marijuana (any form) service: No Exam Narrative: Exam Narrative: Constitutional: Appears well-developed and well-nourished. Alert. Conversant. Looks tired and has her 2 febrile daughter is laying in her lap but overall she is Non toxic. HENT: Head: Atraumatic. Nose: Nose normal. Mouth/Throat: Oral mucosa is clear and moist. no trismus. Pharynx mildly erythematous. Tonsils symmetric. No tonsillar enlargement, or exudate. Right ear: Mastoid, canal, pinna, TM normal. Left ear: Mastoid, canal, pinna, TM normal. Eyes: Conjunctivae normal. EOM normal. Pupils equal, round, and reactive to light. No scleral icterus. Neck: Normal range of motion. Neck supple. No tracheal deviation present. Cardiovascular: Normal rate, regular rhythm. No gallop. No friction rub. No murmur heard. Symmetric radial artery pulses Pulmonary/Chest: Effort normal. No stridor. No respiratory distress. No wheezes. No rales. No rhonchi . No tenderness. Abdominal: Soft. No distension. No mass. No tenderness. No rebound. No guarding. Musculoskeletal: RUE: Normal range of motion. No tenderness. No deformity LUE: Normal range of motion. No tenderness. No deformity RLE: Normal range of motion. No edema. No tenderness. No deformity LLE: Normal range of motion. No edema. No tenderness. No deformity Neurological: Alert and oriented to person, place, and time. Normal strength. CN II-VII intact. No sensory deficit. GCS eye subscore is 4. GCS verbal subscore is 5. GCS motor subscore is 6. Normal coordination Skin: Skin is warm and dry. No rash noted. No pallor. Normal capillary refill. Psychiatric: Normal mood. Normal affect. Const: Vital Signs, click to edit/add: Vital Signs - 24 hr 12/20/24 09:31 Temperature 98.6 F Pulse Rate [Pulse Oximeter] 91 Respiratory Rate 20 Blood Pressure [Ri ght Upper Arm] 114/75 Pulse Oximetry 97 Oxygen Delivery Me thod Room Air Course Vital Signs Vital signs: Initial Vital Signs Temperature 98.6 F 12/20/24 09:31 Temperature Source Temporal Artery Scan 12/20/24 09:31 Pulse Rate 91 12/20/24 09:31 Respiratory Rate 20 12/20/24 09:31 Blood Pressure 114/75 12/20/24 09:31 Blood Pressure Mean 88 12/20/24 09:31 Pulse Oximetry 97 12/20/24 09:31 Oxygen Delivery Method Room Air 12/20/24 09:31 Vital Signs Temperature 98.6 F 12/20/24 09:31 Pulse Rate 91 12/20/24 09:31 Respiratory Rate 20 12/20/24 09:31 Blood Pressure 114/75 12/20/24 09:31 Pulse Oximetry 97 12/20/24 09:31 Oxygen Delivery Method Room Air 12/20/24 09:31 Temperature 98.6 F 12/20/24 09:31 Pulse Rate 91 12/20/24 09:31 Respiratory Rate 20 12/20/24 09:31 Blood Pressure 114/75 12/20/24 09:31 Pulse Oximetry 97 12/20/24 09:31 Oxygen Delivery Method Room Air 12/20/24 09:31 Medical Decision Making MDM Narrative Medical decision making narrative: This patient presents for evaluation of cough, sore throat, fever, chills, headache, body aches. Her 2 daughters are being seen for similar symptoms.. This is consistent with an upper respiratory tract infection. Viral testing positive for influenza A. There is no signs at this point of serious bacterial infection such as OM, RPA, epiglottitis, TRAINING TECHNICIAN, strep pharyngitis, pneumonia, sinusitis, meningitis, bacteremia, serious bacterial infection. Given clear lungs, fever curve, no hypoxia and no respiratory distress I do not feel a CXR is indicated at this point as the probability of bacterial pneumonia is very unlikely. There are no gastrointestinal symptoms at this point and no signs of dehydration. She is unfortunately outside the window where we would expect benefit from Tamiflu so in discussion with the patient we agree that will hold off. Discussed the need for supportive care, hydration, antipyretics. Close followup with primary care physician is indicated. Return to ED for fever > 103, worsening cough, will breathing protracted vomiting, confusion, or other worsening. Lab Data Labs: Lab Results 12/20/24 Range/Units 09:40 SARS-CoV-2 (PCR) Negative SARS-CoV-2 (Negative) Influenza Type A (PCR) POSITIVE PCR FLU A A (Negative) Influenza Type B (PCR) Negative PCR FLU B (Negative) RSV (PCR) Negative PCR RSV (Negative) Discharge Plan Discharge Clinical Impression: Influenza A Patient Disposition: Home, Self-Care Condition: Stable Instructions: Influenza (DC) Additional Instructions: As we discussed, your flu swab is positive for influenza A. Please try to stay hydrated and get plenty of fluids and clear liquids. You can add solid foods as tolerated. It is safe to use Tylenol or ibuprofen every 6 hours as needed for fever. Please return to the ER or to the doctor right away if you have any concerns; especially trouble breathing or worsening cough , increasing weakness, worsening cough or trouble breathing, confusion, uncontrolled vomiting or dehydration. Please stay home from work or school until you have been afebrile for 24 hours and overall your symptoms are starting to feel better. Prescriptions: No Action haloperidol 5 mg tablet 5 mg PO DAILY PRN (Reason: agitation) Qty: 10 2RF trazodone 50 mg tablet PO olanzapine 5 mg tablet 5 mg PO QPM omeprazole 20 mg capsule,delayed release(DR/EC) 20 mg PO DAILY sertraline 50 mg tablet 50 mg PO DAILY ondansetron HCl 4 mg tablet PO olanzapine 10 mg tablet 10 mg PO QPM pantoprazole 20 mg tablet,delayed release (DR/EC) 20 mg PO DAILY lorazepam 0.5 mg tablet 0.5 mg PO BID PRNQty: 5 0RF Follow Up/Referrals: Ethan Chacon MD [Staff Physician] - Stand Alone Forms: [employer] Newsletter Info Instructions
[2024-12-20 10:25] LABS: PCR FLU A POSITIVE PCR FLU A (Negative); PCR FLU B Negative PCR FLU B (Negative); PCR RSV Negative PCR RSV (Negative); SARS PCR* Negative SARS-CoV-2 (Negative)
--- OUTSIDE RECORDS SUMMARY | 2024-12-20 11:11 | XMS_ITS | Continuity of Care Document ---
Author Organization [facility] Address [address] [address] [place] [address] Phone Care Team Providers Care Senior Grant Writer Name Role Phone Unavailable Unavailable Unavailable Allergies, [...] Copied on Encounter Offic/outpt E&m Estab Low-mod [facility], [address] [address], [place], [place], [id number], tel:[phone] [facility] Symptoms or Concerns (chief complaint) HeartburnDiarr hea, unspecified type 7 No Information Kat William MD. tel:[phone] [facility], [address] [address], [place], [id number], [place] tel:[phone] [facility] Diarrhea, unspecified typeHeartburnD iarrhea, unspecifiedDia rrhea, unspecifiedHea rtburn No Information Office Cons New/estab Mod [facility], [address] [address], [place], [id number], tel:[phone] [facility] GI Symptoms or Concerns (chief complaint) [...] well Payers Payer name Insurance type Covered alliance party ID Authorsuzannaa tikendra(s) [employer] [place] BL [id number] Social History Type Description Quantity Date Captured [...] Mental Status Date Cognitive Assessment Orientation - [place] ed to time, place, person, situation. Patient Care Teams Name Effective Dates (start - stop) Status Members No Information
--- OUTSIDE RECORDS SUMMARY | 2024-12-20 11:11 | XMS_ITS | Clinical Summary ---
Author Organization [facility] Address [address] [facility] [place] [address] Care Team Providers Care Commercial Lines Account Assistant Name Role Phone No Ref-Primary, Physician Primary [...] on file Legal Sex Female 4:40 AM OPTOELECTRONICS ENGINEER Gender Identity Not on file Sexual Orientation [...] 170.2 cm (5' 7) 08/29/2011 2:01 PM OPTOELECTRONICS ENGINEER Body Mass Index 24 08/29/2011 2:01 PM OPTOELECTRONICS ENGINEER Plan of Treatment Health Maintenance Due Date [...] MD LAB - BLOOD ORDERABLES Final Result [facility] [address] Lab (1st floor, no room number) [place] [address], [facility] [phone] from Last 3 Months or Most Recently Relevant to Health Maintenance Care Teams Commercial Lines Account Assistant Relationship Specialty Start Date End Date No Ref-Primary, Physician PCP - General 12/08/17
--- OUTSIDE RECORDS SUMMARY | 2024-12-20 11:11 | XMS_ITS | Clinical Summary ---
Author Organization [facility] Address [address] , [address] [place] [address] Phone Care Team Providers Care Fashion Photographer Name Role Phone [facility] Unavailable Unava ilable Conditions or Problems Problem Name Problem Code Onset Date Status Entry Date Provider Comment Standard Description Annotate Visual distortion 103223751 (SNOMED CT) Active 11/04 Elvia Alexis MD Visual distortion of perception of shape Abnormal brain MRI 774388803 (SNOMED CT) Active 11/04 Elvia Alexis MD Magnetic resonance imaging of brain abnormal Muscle spasm 97674937 (SNOMED CT) Active 11/04 Elvia Alexis MD Spasm Elevated liver enzymes 761498780 (SNOMED CT) Active 11/04 Elvia Alexis MD Liver enzymes outside reference range Leg numbness, right 098522060 (SNOMED CT) Resolved 10/17 Elvia Alexis MD Numbness of limbs Vertigo 199383066 (SNOMED CT) Active 11/04 Elvia Alexis MD Vertigo Numbness paresthesia 08776266 (SNOMED CT) Active 11/04 Elvia Alexis MD Numbness Meralgia paresthetica, right 80858825 (SNOMED CT) Active 11/04 Elvia Alexis MD Meralgia paresthetica Leg numbness, right 045636612 (SNOMED CT) Removed 10/17 Elvia Alexis MD Numbness of limbs Medications Medication Instructions Start Date Stop Date Generic Name NDC Provider OLANZAPINE 2.5 MG TABS Take 1 tablet by mouth three times a day as needed 7 olanzapine [id number] Elvia Alexis MD VENLAFAXINE HCL ER 150 MG AF23V-TAW Take 1 capsule (150mg) by mouth once daily with food. 3 venlafaxine 19852938759 QIEUSER QIEUSER PRAZOSIN HCL 2 MG CAPS Take 1 capsule (2mg) by mouth every night at bedtime. 3 prazosin 67825789873 QIEUSER QIEUSER PRAZOSIN HCL 1 MG CAPS Take 1 capsule (1mg) by mouth once daily. 3 prazosin 09603488436 QIEUSER QIEUSER PANTOPRAZOLE SODIUM 20 MG TBEC Take 1 Tablet (20 mg) by mouth once daily before a meal. 6 pantoprazole 43669222837 QIEUSER QIEUSER OLANZAPINE 2.5 MG TABS Take 1 tablet (2.5mg) by mouth 3 times daily as needed. 7 olanzapine 33934761574 QIEUSER QIEUSER OLANZAPINE 2.5 MG TABS Take 1 tablet (2.5mg) by mouth 3 times daily as needed. 3 olanzapine 02475247623 QIEUSER QIEUSER METFORMIN HCL 500 MG TABS Take 1 Tablet (500 mg) by mouth once daily with a meal. 9 metformin 72931602453 QIEUSER QIEUSER Medications Administered No information available. [...] Entry Date ORDERS Follow up as needed [id number] MRI-Cervical W/WO MS Protocol [id number] MRI-Thoracic W/WO MS Protocol CPT-38678 MRI Cervical W/WO CPT-R0271P ProHance Gadolinium- based MR Contrast - 20 ml vial CPT-30006 MRI Thoracic W/WO CPT-X2494M ProHance Gadolinium- based MR Contrast - 20 [...] up Extended i n clinic or telemedicine [id number] Other Referral [id number] LP-Lumbar Puncture 9 [id number] Documentation of current medicatio ns ORDERS Hepatic Function Panel (7) 2 ORDERS CK (Creatine Kinase) Total 2 ORDERS LIVAN (Angiotensin Converting Enzyme) 09/03 ORDERS TRAVIS ORDERS Lyme Total Ab w/Refl ex (reflex to Western Blot) ORDERS Rheumatoid (RA) Factor 09/03 ORDERS Sjogren's Ab - SSA/SSB (ANTI-Ro/ANTI-La) ORDERS Ceruloplasmin ORDERS Copper CPT-21407 Nerve Conduction 3-4 studies CPT-88564 EMG with NCS (5+ muscles) - 1 limb 10/17 Vital Signs Date Name Value Unit Description Weight Measured 190 [lb_av] weight E& M Weight Measured 190 [lb_av] weight E& M Immunizations No information available. Advance Directives No information available.
--- OUTSIDE RECORDS SUMMARY | 2024-12-20 11:11 | XMS_ITS | Clinical Summary ---
Author Organization [facility] Address [address] [place] [address] Care Team Providers Care Director Prison Name Role Phone Found, No Pcp MD [...] for each transition of care or referral. [facility] Allergies No known active allergies Medications glycopyrrolate [...] age to complete this topic Care Teams Director Prison Relationship Specialty Start Date End Date Found, No Pcp, [address] [place] [address] PCP - General 03/01/16
--- OUTSIDE RECORDS SUMMARY | 2024-12-20 11:11 | XMS_ITS | Clinical Summary ---
Author Organization [facility] Address [address] [place] [address] Care Team Providers Care Wheel Adjuster Name Role Phone Elsewhere, Pcp Primary Care Provider Unavailabl e Source Comments Patient records contain information from all sites at [facility]. For routine questions regarding patient records, call [phone] during business hours, M-F 8:00 AM - 5:00 PM Central Time. Record requests for emergency care only can be directed to [phone] at any time.[facility] Allergies No known active allergies Medications acetaminophen [...] on file Legal Sex Female 9:23 AM STUDENT SUCCESS ADVISOR Gender Identity Not on file Sexual Orientation [...] on file Medical Devices Implanted Type Area Engineering Lab Technician Device Identifier Shelf Expiration Date Model / Serial / Lot Ureteral Stent Ureteral Stent Left: Ureter Insurance [facility] Care Teams Wheel Adjuster Relationship Specialty Start Date End Date Elsewhere, Pcp PCP - General Internal Medicine 05/24/23
--- OUTSIDE RECORDS SUMMARY | 2024-12-20 11:12 | XMS_ITS | Clinical Summary ---
Author Organization [facility] Address [address] [place] [address] Care Team Providers Care Residential Building Inspector Name Role Phone Kendell Reeves Primary Care Provider [phone] Allergies No known active allergies Medications ondansetron [...] 04/30/2019 06/22/2024 Overview (05/04/2019): Lor, [place] Interventional Radiologist/Inverted Block Operator, Toni, Father of babies, involved boyfriend Blood [...] Type Department Care Team Description 11/28/2024 Refill [facility] [address] [place] [address] Candi Vann, Refill Request (omeprazole) 11/07/2024 9:45 AM WIRE HARNESS ASSEMBLER Telemedicine [facility] [address] [facility] [address] [place] [address] Fabi Multani NP Follow Up; Medication Management; Telehealth 10/18/2024 Telephone [facility] [address] [place] [address] Ai Fowler MBBS outreach (Diabetes) 10/10/2024 9:45 AM WIRE HARNESS ASSEMBLER Telemedicine [facility] [address] [facility] [address] [place] [address] Fabi Multani NP Telehealth; Medication Management (Pt [...] Uncle 3 MS Anxiety disorder Mother Good [facility] Mother Cancer Paternal Aunt abdominal Anesthesia Problem [...] on file Legal Sex Female 5:23 AM WIRE HARNESS ASSEMBLER Gender Identity Female 03/15/2020 1:52 AM CDT [...] ranv Spinal N Livin g Marva Delivery Location:[facility] (UTD 2000 MB L&D TRIAGE) Last Filed [...] Description 02/19/2025 8:30 AM CDT Office Visit [facility] [address] [place] [address] Hussein Doe MD [address] [place] [address] Scheduled Procedures Name Priority Associated Diagnoses Date/Ti [...] 07/02/2019, 03/31/2015 Medical Devices Implanted Type Area Floral Specialist Device Identifier Shelf Expiration Date Model / Serial / Lot Stent Uret [id number] Percuflex Hydroplus - [id number] Implanted:Qty: 1 on 05/18/2023 by Jeny Quinn MD at [facility] Left: Ureter [facility] 12/12/2025 [id number] / / [id number] Procedures Procedure Name Priority Date/Time Associated Diagnosis [...] ashleigh Non-React ashleigh 02/26/2019 10:21 PM CDT [facility] Comment:Antibodies to HCV no t detected; does not exclude the possibility of exposure to HCV. Blood BLOOD SPECIMEN / Unknown Venipuncture / Unknown 02/26/2019 2:52 PM CDT 02/26/2019 2:53 PM CDT Lula MCGUIRE SEND OUTS Final R esult [facility] [address] [place] [address], * ANTI HIV 1/2 (02/26/2019 2:52 PM CDT) HIV-1/HIV-2 ANTIBODY Non-Reacti ve Non-Reacti ve 02/26/2019 10:27 PM CDT [facility] Comment:HIV-1 p24 and HIV-1/ HIV-2 Ab not detected. Blood BLOOD SPECIMEN / Unknown Venipuncture / Unknown 02/26/2019 2:52 PM CDT 02/26/2019 2:53 PM CDT us Lula MCGUIRE SEND OUTS Final R esult [facility] [address] [place] [address], [place] from Last 3 Months or Most Recently Relevant to Health Maintenance Insurance [facility] Member Subscriber Plan / Payer (Ef fective 2023-Present) Name:Tarah William Relation to Subscriber:Self Name:Tarah William Payer ID:[id number] (NAIC) Group ID:[id number] Type:Not on file Address: [address] Advance Directives * Full Code (Latest Code Status on File) Date Activated Date Inactivated Comments 05/18/2023 6:03 AM 05/18/2023 3:08 PM Question Answer Comments Code Status Discussion: Reviewed Preferences * Full Code Date Activated Date Inactivated Comments 04/25/2020 12:14 PM 04/27/2020 1:39 PM * Full Code Date Activated Date Inactivated Comments 08/09/2019 7:38 PM 08/14/2019 12:26 PM Care Teams Residential Building Inspector Relationship Specialty Start [place] [address] [place] [address] PCP - General Physician Healthcare Customer Service 10/18/24
== END 2024-12-20 11:12 | disposition home or self-care (01) ==
LOC: ED 11:07
PROVIDERS: Emergency Provider Emergency Medicine; PCP Physician Assistant Medical
DX: J10.1 Influenza due to other identified influenza virus with other respiratory manifestations (principal); R05.1 Acute cough
CPT/HCPCS: 87631; 99283

== ENCOUNTER 2024-12-24 13:01 | Emergency (ER) | payer MEDICARE, BC, SELFPAY ==
--- OUTSIDE RECORDS SUMMARY | 2024-12-24 13:04 | XMS_ITS | Clinical Summary ---
Author Organization [facility] Address [address] [facility] [place] [address] Care Team Providers Care Mill Operator Helper Name Role Phone No Ref-Primary, Physician Primary [...] on file Legal Sex Female 4:40 AM BIOMATHEMATICIAN Gender Identity Not on file Sexual Orientation [...] 170.2 cm (5' 7) 08/29/2011 2:01 PM BIOMATHEMATICIAN Body Mass Index 24 08/29/2011 2:01 PM BIOMATHEMATICIAN Plan of Treatment Health Maintenance Due Date [...] MD LAB - BLOOD ORDERABLES Final Result [facility] [address] Lab (1st floor, no room number) [place] [address], [facility] [phone] from Last 3 Months or Most Recently Relevant to Health Maintenance Care Teams Mill Operator Helper Relationship Specialty Start Date End Date No Ref-Primary, Physician PCP - General 12/08/17
--- OUTSIDE RECORDS SUMMARY | 2024-12-24 13:04 | XMS_ITS | Clinical Summary ---
Author Organization [facility] Address [address] [place] [address] Care Team Providers Care Prosthetic Lab Technician Name Role Phone Found, No Pcp MD [...] for each transition of care or referral. [facility] Allergies No known active allergies Medications glycopyrrolate [...] age to complete this topic Care Teams Prosthetic Lab Technician Relationship Specialty Start Date End Date Found, No Pcp, [address] [place] [address] PCP - General 03/01/16
--- OUTSIDE RECORDS SUMMARY | 2024-12-24 13:04 | XMS_ITS | Clinical Summary ---
Author Organization [facility] Address [address] , [address] [place] [address] Phone Care Team Providers Care Mica Miner Blasting Name Role Phone [facility] Unavailable Unava ilable Conditions or Problems Problem Name Problem Code Onset Date Status Entry Date Provider Comment Standard Description Annotate Visual distortion 206818614 (SNOMED CT) Active 11/04 Elvia Alexis MD Visual distortion of perception of shape Abnormal brain MRI 319252152 (SNOMED CT) Active 11/04 Elvia Alexis MD Magnetic resonance imaging of brain abnormal Muscle spasm 75111188 (SNOMED CT) Active 11/04 Elvia Alexis MD Spasm Elevated liver enzymes 719150416 (SNOMED CT) Active 11/04 Elvia Alexis MD Liver enzymes outside reference range Leg numbness, right 931643166 (SNOMED CT) Resolved 10/17 Elvia Alexis MD Numbness of limbs Vertigo 286727026 (SNOMED CT) Active 11/04 Elvia Alexis MD Vertigo Numbness paresthesia 31382808 (SNOMED CT) Active 11/04 Elvia Alexis MD Numbness Meralgia paresthetica, right 72443197 (SNOMED CT) Active 11/04 Elvia Alexis MD Meralgia paresthetica Leg numbness, right 755374639 (SNOMED CT) Removed 10/17 Elvia Alexis MD Numbness of limbs Medications Medication Instructions Start Date Stop Date Generic Name NDC Provider OLANZAPINE 2.5 MG TABS Take 1 tablet by mouth three times a day as needed 7 olanzapine [id number] Elvia Alexis MD VENLAFAXINE HCL ER 150 MG [id number] Take 1 capsule (150mg) by mouth once daily with food. 3 venlafaxine 56658730594 QIEUSER QIEUSER PRAZOSIN HCL 2 MG CAPS Take 1 capsule (2mg) by mouth every night at bedtime. 3 prazosin 66089147526 QIEUSER QIEUSER PRAZOSIN HCL 1 MG CAPS Take 1 capsule (1mg) by mouth once daily. 3 prazosin 55718186975 QIEUSER QIEUSER PANTOPRAZOLE SODIUM 20 MG TBEC Take 1 Tablet (20 mg) by mouth once daily before a meal. 6 pantoprazole 89747483779 QIEUSER QIEUSER OLANZAPINE 2.5 MG TABS Take 1 tablet (2.5mg) by mouth 3 times daily as needed. 7 olanzapine 66602308936 QIEUSER QIEUSER OLANZAPINE 2.5 MG TABS Take 1 tablet (2.5mg) by mouth 3 times daily as needed. 3 olanzapine 51986920499 QIEUSER QIEUSER METFORMIN HCL 500 MG TABS Take 1 Tablet (500 mg) by mouth once daily with a meal. 9 metformin 15895481940 QIEUSER QIEUSER Medications Administered No information available. [...] Entry Date ORDERS Follow up as needed [id number] MRI-Cervical W/WO MS Protocol [id number] MRI-Thoracic W/WO MS Protocol CPT-01938 MRI Cervical W/WO CPT-V6476E ProHance Gadolinium- based MR Contrast - 20 ml vial CPT-52366 MRI Thoracic W/WO CPT-P2750V ProHance Gadolinium- based MR Contrast - 20 [...] up Extended i n clinic or telemedicine [id number] Other Referral [id number] LP-Lumbar Puncture 9 [id number] Documentation of current medicatio ns ORDERS Hepatic Function Panel (7) 2 ORDERS CK (Creatine Kinase) Total 2 ORDERS LIVAN (Angiotensin Converting Enzyme) 09/03 ORDERS TRAVIS ORDERS Lyme Total Ab w/Refl ex (reflex to Western Blot) ORDERS Rheumatoid (RA) Factor 09/03 ORDERS Sjogren's Ab - SSA/SSB (ANTI-Ro/ANTI-La) ORDERS Ceruloplasmin ORDERS Copper CPT-90993 Nerve Conduction 3-4 studies CPT-31262 EMG with NCS (5+ muscles) - 1 limb 10/17 Vital Signs Date Name Value Unit Description Weight Measured 190 [lb_av] weight E& M Weight Measured 190 [lb_av] weight E& M Immunizations No information available. Advance Directives No information available.
--- OUTSIDE RECORDS SUMMARY | 2024-12-24 13:04 | XMS_ITS | Clinical Summary ---
Author Organization [facility] Address [address] [place] [address] Care Team Providers Care Cab Station Attendant Name Role Phone Elsewhere, Pcp Primary Care Provider Unavailabl e Source Comments Patient records contain information from all sites at [facility]. For routine questions regarding patient records, call [phone] during business hours, M-F 8:00 AM - 5:00 PM Central Time. 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
--- OUTSIDE RECORDS SUMMARY | 2024-12-24 13:05 | XMS_ITS | Clinical Summary ---
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, Toni, Father of babies, involved boyfriend Blood [...] Type Department Care Team Description 11/28/2024 Refill [facility] [address] [place] [address] Candi Vann, Refill Request (omeprazole) 11/07/2024 9:45 AM PATTERN CUTTER Telemedicine [facility] [address] [facility] [address] [place] [address] Fabi Multani NP Follow Up; Medication Management; Telehealth 10/18/2024 Telephone [facility] [address] [place] [address] Ai Fowler MBBS outreach (Diabetes) 10/10/2024 9:45 AM PATTERN CUTTER Telemedicine [facility] [address] [facility] [address] [place] [address] Fabi Multani NP Telehealth; Medication Management (Pt [...] Uncle 3 MS Anxiety disorder Mother Good [facility] Mother Cancer Paternal Aunt abdominal Anesthesia Problem [...] on file Legal Sex Female 5:23 AM PATTERN CUTTER Gender Identity Female 03/15/2020 1:52 AM CDT [...] ranv Spinal N Livin g Marva Delivery Location:[facility] (UTD 2000 MB L&D TRIAGE) Last [...] Description 02/19/2025 8:30 AM CDT Office Visit [facility] [address] [place] [address] Hussein Doe MD [address] [place] [address] Scheduled Procedures Name Priority Associated Diagnoses Date/Ti [...] 07/02/2019, 03/31/2015 Medical Devices Implanted Type Area Hospital Superintendent Device Identifier Shelf Expiration Date Model / Serial / Lot Stent Uret [id number] Percuflex Hydroplus - [id number] Implanted:Qty: 1 on 05/18/2023 by Jeny Quinn MD at Left: Ureter [facility] 12/12/2025 [id number] / / [id number] Procedures Procedure Name Priority Date/Time Associated Diagnosis [...] ashleigh Non-React ashleigh 02/26/2019 10:21 PM CDT [facility] Comment:Antibodies to HCV no t detected; does not exclude the possibility of exposure to HCV. Blood BLOOD SPECIMEN / Unknown Venipuncture / Unknown 02/26/2019 2:52 PM CDT 02/26/2019 2:53 PM CDT Lula MCGUIRE SEND OUTS Final R esult [facility] [address] [place] [address], * ANTI HIV 1/2 (02/26/2019 2:52 PM CDT) HIV-1/HIV-2 ANTIBODY Non-Reacti ve Non-Reacti ve 02/26/2019 10:27 PM CDT [facility] Comment:HIV-1 p24 and HIV-1/ HIV-2 Ab not detected. Blood BLOOD SPECIMEN / Unknown Venipuncture / Unknown 02/26/2019 2:52 PM CDT 02/26/2019 2:53 PM CDT us Lula MCUGIRE SEND OUTS Final R esult [facility] [address] [place] [address], [place] from Last 3 Months or Most Recently Relevant to Health Maintenance Insurance [facility] [place] Member Subscriber Plan / Payer (Ef fective 2023-Present) Name:Tarah William Relation to Subscriber:Self Name:Tarah William Payer ID:[id number] (NAIC) Group ID:[id number] Type:Not on file Address: [address] Advance Directives * Full Code (Latest Code Status on File) Date Activated Date Inactivated Comments 05/18/2023 6:03 AM 05/18/2023 3:08 PM Question Answer Comments Code Status Discussion: Reviewed Preferences * Full Code Date Activated Date Inactivated Comments 04/25/2020 12:14 PM 04/27/2020 1:39 PM * Full Code Date Activated Date Inactivated Comments 08/09/2019 7:38 PM 08/14/2019 12:26 PM Care Teams Hospice Care Consultant Relationship Specialty Start [place] [address] [place] [address] PCP - General Physician Knee Bolter 10/18/24
--- OUTSIDE RECORDS SUMMARY | 2024-12-24 13:05 | XMS_ITS | Data Portability ---
Author Organization [facility] Address [address] [facility] [address] [place] [address] Care Team Providers Care Supervisor Scrap Preparation Name Role Phone MARIO DANIELS Primary Care Provider Assessment No assessment recorded. Plan of Treatment Reminders Order Date Submit Date Provider Last Modified By Organization Details Last Modified Time Details Appointments None recorded . Lab None recorded . Referral None recorded . Procedures None recorded . Surgeries None recorded . Imaging US, kidney - to be done in 2-3 weeks. check for left hydronep hrosis. 023 06/03/20 SILVA [facility], [address], [place], [address], 17:10:07 Medication Orders None recorded . Patient TargetsNo targets recorded. Patient InstructionsNo instructions recorded. Reason for Referral None Reported. Results Created Date Observation Date Name Description Value Unit Range Abnormal Flag Note LastModifiedBy Organization Detail LastModifiedTime 06/23/2006/23/2023 , leno Chambers observ ation record ed. [email or web address] [facility] [address], [place], [address], 07/07/2023 11:09:42 Result Notes None recorded. Procedures Surgical History Date Name Laterality Status Provider Name and Address Organization Details Recorded Time 06/03/20 23 Cystoscopy with foreign body/stent removal completed Joe Alvarze MD [address] [facility],[address], [place], [address], [facility] 06/03/2023 13:07:46 06/10/20 11 Colonoscopy completed Patty Rincon [facility] 06/03/2023 12:27:14 Partial Hysterectomy completed Pattychuy Rincon [facility] 06/03/2023 12:27:23 Imaging Results Imaging Date Name Status LastModified by Organiz ation Details LastModified Time 06/23/2023 US, kidney completed [email or web address] Ismael Alvarez eld [address], [place], [address], 07/07/2023 11:09:42 Procedure Notes None recorded. Medical [...] Updated DateTime 06/03/2023 167.64 cm 33.1 kg/m2 97918.44 g Patty Rincon [facility] 06/03/2023 12:23:27 Social History Question Answer Notes LastModified by Organizat ion Details LastModified Time Tobacco Smoking Status Current Some Day Smoker Patty Rincon [facility] 06/03/2023 12:26:38 What Is Your Level Of Alcohol Consumption? None Information not available 06/03/2023 What Is Your Level Of Caffeine Consumption? Occasional [email or web address] Information not available 06/03/2023 What Was The Date Of Your Most Recent Tobacco Screening? 06/03/2023 [email or web address] Information not available 06/03/2023 Do You Use Any Illicit Or Recreational Drugs? No [email or web address] Information not available 06/03/2023 Has Tobacco Cessation Counseling Been Provided? No [email or web address] Information not available 06/03/2023 Do You Or Have You Ever Used Any Other Forms Of Tobacco Or Nicotine? No [email or web address] Information not available 06/03/2023 Sex: Unknown Functional Status None recorded. Mental Status None recorded. Family History Relationship Description Onset Age of this Age Resolved Age Notes LastModified by Organization Details LastModified Time Unspecified Relation Family history of malignant neoplasm [email or web address] Not available 06/03 12:25:07 Medical History Condition Response Kidney Stones Y Depression Y Gynecological HistoryNo gynecological history recorded. Obstetrics History GPAL:G 0 P 0 0 0 0 Past Encounters Encounter ID Performer Location Encounter Start Date Encounter Closed Date Diagnosis/Indication Diagnosis SNOMED-CT Code Diagnosis ICD10 Code Diagnosis Note [id number] Joe Alvarez MD [facility] [address] [facility] [place] [address] 06/03/2023 11:36:16 06/03/2023 13:29:29 Hydronephrosis 67077353 N13.30 Obstruction of ureter 76 1969550 N13.5 Obstructio n of ureter during hysterecto [...] (MEDICAID REPLACEMENT - HMO) [id number] Tarah William [id number] Tarah William Notes Date Note Type [...] and recent laboratory results Joe Alvarez MD [address] [place] [address],[address], [place], [address], [facility] 06/03/2023 13:09:50 OBGyn Episode No OBEpisode recorded.
[2024-12-24 13:12] VITALS: BP 123/86; PULSE 90; RESP 20; TEMP 36.5; O2SAT 98; BMI 31.5
--- NOTE | 2024-12-24 14:26 | ED_ITS ---
HPI - Abdominal Pain General Chief Complaint: Abdominal Pain Stated Complaint: Severe Abdominal pain Time Seen by Provider: 12/24/24 13:20 History of Present Illness HPI narrative: This 38-year-old female comes from urgent care because of severe upper epigastric pain and nausea with vomiting. She states that she has had symptoms like this many times in the past and has been to a GI specialist. She does have a diagnosis of gastroparesis from the GI specialist. The patient also uses marijuana and may be exhibiting some cyclical vomiting syndrome symptoms. She arrives here with normal vital signs. 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 Related Data Home Medications ?Medication ?Instructions ?Recorded ?Confirmed olanzapine 10 mg tablet 10 mg PO QPM 04/22/23 12/24/24 sertraline 50 mg tablet 50 mg PO DAILY 12/20/24 12/24/24 trazodone 50 mg tablet PO 12/20/24 12/24/24 hydroxyzine pamoate 50 mg capsule 50 mg PO DAILY PRN 12/24/24 12/24/24 lamotrigine 200 mg tablet 200 mg PO DAILY 12/24/24 12/24/24 olanzapine 5 mg tablet 5 mg PO QDAY 12/24/24 12/24/24 omeprazole 20 mg capsule,delayed 20 mg PO DAILY PRN 12/24/24 12/24/24 release prazosin 1 mg capsule mg PO 12/24/24 12/24/24 Previous Rx's ?Medication ?Instructions ?Recorded ondansetron HCl 4 mg tablet 4 mg PO Q6H #10 tabs 12/24/24 Allergies Allergy/AdvReac Type Severity Reaction Status Date / Time No Known Drug Allergies Allergy Verified 12/24/24 12:38 Review of Systems Status of ROS Reports: 10 or more systems reviewed and unremarkable except as noted in History and below Narrative Constitutional: No fevers, no weight gain or loss. Eyes: No discharge. No vision changes. HENT: No congestion, no sore throat, no ear pain. Cardiovascular: No chest pain, no palpitations. Respiratory: No shortness of breath, no wheezes, no cough. Gastrointestinal: No diarrhea. Upper epigastric abdominal pain with nausea and vomiting. Genitourinary: No dysuria, no hematuria. Musculoskeletal: Normal range of motion. Skin: No rashes, no pruritis. Neurological: No dizziness, weakness, sensory change, speech change. Endo/Heme/Allergies: No bruising or bleeding. No polydipsia. Pysch: no suicidality, no anxiety, no insomnia. All other systems reviewed and are negative. [facility] Social History Smoking Status: Current some day smoker Do you use any of these nicotine containing products: None How often do you have a drink containing alcohol: never How often do you have six or more drinks on one occasion: Less than monthly AUDIT-C Alcohol total score: 1 Non-prescribed substance use: marijuana (any form) service: No Exam Narrative: Exam Narrative: Constitutional: Well-developed, well-nourished, no acute distress. HEENT: Normocephalic, atraumatic. Neck: Normal range of motion. Nontender. Supple. Heart: Regular. No murmurs. Normal rate. Intact distal pulses. Lungs: Clear to auscultation. No chest discomfort. No wheezes, rhonchi, or rales. Abdomen: Normal bowel sounds. Diffuse tenderness in the upper abdomen. No rebound tenderness. Genitalia: Deferred. Back: No midline tenderness. Normal range of motion. Extremities: Normal range of motion. No injury. Skin: Intact. No rash. Warm. No erythema or pallor. Neurologic: No altered sensation. No weakness. Alert and oriented. Psychiatric: No suicidality. No anxiety or depression. No insomnia. Nursing notes and vitals signs are reviewed. Const: Vital Signs, click to edit/add: Vital Signs - 24 hr 12/24/24 13:12 Temperature 97.7 F Pulse Rate [Pulse Oximeter] 90 Respiratory Rate 20 Blood Pressure [Ri ght Upper Arm] 123/86 Pulse Oximetry 98 Oxygen Delivery Me thod Room Air Course Vital Signs Vital signs: Initial Vital Signs Temperature 97.7 F 12/24/24 13:12 Temperature Source Temporal Artery Scan 12/24/24 13:12 Pulse Rate 90 12/24/24 13:12 Respiratory Rate 20 12/24/24 13:12 Blood Pressure 123/86 12/24/24 13:12 Blood Pressure Mean 98 12/24/24 13:12 Pulse Oximetry 98 12/24/24 13:12 Oxygen Delivery Method Room Air 12/24/24 13:12 Vital Signs Temperature 97.7 F 12/24/24 13:12 Pulse Rate 90 12/24/24 13:12 Respiratory Rate 20 12/24/24 13:12 Blood Pressure 123/86 12/24/24 13:12 Pulse Oximetry 98 12/24/24 13:12 Oxygen Delivery Method Room Air 12/24/24 13:12 Temperature 97.7 F 12/24/24 13:12 Pulse Rate 90 12/24/24 13:12 Respiratory Rate 20 12/24/24 13:12 Blood Pressure 123/86 12/24/24 13:12 Pulse Oximetry 98 12/24/24 13:12 Oxygen Delivery Method Room Air 12/24/24 13:12 Medications Administered Medications: Discontinued Medications Generic Name Dose Route Start Last Admin Trade Name Susan PRN Reason Stop Dose Admin Ketorolac Tromethamine 30 mg 12/24/24 14:25 12/24/24 14:34 Ketorolac 30 Mg/Ml Inj IM 12/24/24 14:26 30 mg ONCE ONE Administration Ondansetron HCl 4 mg 12/24/24 14:25 12/24/24 14:34 Ondansetron Odt 4 Mg Tab PO 12/24/24 14:26 4 mg ONCE ONE Administration MDM - Abdominal Pain MDM Narrative Medical decision making narrative: This patient comes in with symptoms of vomiting and abdominal pain as described above. These symptoms are not new for her as they have been recurrent many times in the past. I did recommend IV fluids and checking labs with administration of medicines to help her feel better. 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 She was agreeable to treatments to help her feel better and for go any further diagnostic studies now. The patient did receive an intramuscular injection of Toradol 30 mg, an oral dose of Zofran 4 mg, and a GI cocktail. Discharge Plan Discharge Clinical Impression: Abdominal pain, Vomiting Patient Disposition: Home, Self-Care Condition: Stable Additional Instructions: Continue current plans. Avoid use of alcohol and marijuana. Use Zofran as needed and directed for nausea symptoms. Follow up with MD return if worsening. Prescriptions: New ondansetron HCl 4 mg tablet 4 mg PO Q6H Qty: 10 0RF No Action hydroxyzine pamoate 50 mg capsule 50 mg PO DAILY PRN lamotrigine 200 mg tablet 200 mg PO DAILY prazosin 1 mg capsule PO trazodone 50 mg tablet PO sertraline 50 mg tablet 50 mg PO DAILY olanzapine 5 mg tablet 5 mg PO QDAY omeprazole 20 mg capsule,delayed release(DR/EC) 20 mg PO DAILY PRN olanzapine 10 mg tablet 10 mg PO QPM Follow Up/Referrals: Kendell Reeves PA-C [Primary Care Provider] - Stand Alone Forms: SaaSAssurance Info Instructions
[2024-12-24] MEDS: KETOROLAC 30 MG/ML inj IM (14:34)
[2024-12-24] MEDS: ONDANSETRON ODT 4 MG TAB PO (14:34)
--- OUTSIDE RECORDS SUMMARY | 2024-12-24 14:37 | XMS_ITS | Clinical Summary ---
Author Organization [facility] Address [address] [place] [address] Care Team Providers Care Ring Striker Name Role Phone Found, No Pcp MD [...] for each transition of care or referral. [facility] Allergies No known active allergies Medications glycopyrrolate [...] age to complete this topic Care Teams Ring Striker Relationship Specialty Start Date End Date Found, No Pcp, [address] [place] [address] PCP - General 03/01/16
--- OUTSIDE RECORDS SUMMARY | 2024-12-24 14:37 | XMS_ITS | Clinical Summary ---
Author Organization [facility] Address [address] [facility] 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 Gender Identity Not on file Sexual Orientation [...] 170.2 cm (5' 7) 08/29/2011 2:01 PM KNITTED GOODS SHAPER Body Mass Index 24 08/29/2011 2:01 PM KNITTED GOODS SHAPER Plan of Treatment Health Maintenance Due Date [...] MD LAB - BLOOD ORDERABLES Final Result [facility] [address] Lab (1st floor, no room number) [place] [address], [facility] [phone] from Last 3 Months or Most Recently Relevant to Health Maintenance Care Teams Learning Design Specialist Relationship Specialty Start Date End Date No Ref-Primary, Physician PCP - General 12/08/17
--- OUTSIDE RECORDS SUMMARY | 2024-12-24 14:37 | XMS_ITS | Clinical Summary ---
Author Organization [facility] Address [address] [place] [address] Care Team Providers Care Community Placement Worker Name Role Phone Elsewhere, Pcp Primary Care Provider Unavailabl e Source Comments Patient records contain information from all sites at [facility]. For routine questions regarding patient records, call [phone] during business hours, M-F 8:00 AM - 5:00 PM Central Time. 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
--- OUTSIDE RECORDS SUMMARY | 2024-12-24 14:37 | XMS_ITS | Clinical Summary ---
Author Organization [facility] Address [address] , [address] [place] [address] Phone Care Team Providers Care Paper Mill Superintendent Name Role Phone [facility] Unavailable Unava ilable Conditions or Problems Problem Name Problem Code Onset Date Status Entry Date Provider Comment Standard Description Annotate Visual distortion 250844533 (SNOMED CT) Active 11/04 Elvia Alexis MD Visual distortion of perception of shape Abnormal brain MRI 327522457 (SNOMED CT) Active 11/04 Elvia Alexis MD Magnetic resonance imaging of brain abnormal Muscle spasm 23148387 (SNOMED CT) Active 11/04 Elvia Alexis MD Spasm Elevated liver enzymes 419962133 (SNOMED CT) Active 11/04 Elvia Alexis MD Liver enzymes outside reference range Leg numbness, right 129939707 (SNOMED CT) Resolved 10/17 Elvia Alexis MD Numbness of limbs Vertigo 002514477 (SNOMED CT) Active 11/04 Elvia Alexis MD Vertigo Numbness paresthesia 61723168 (SNOMED CT) Active 11/04 Elvia Alexis MD Numbness Meralgia paresthetica, right 60318040 (SNOMED CT) Active 11/04 Elvia Alexis MD Meralgia paresthetica Leg numbness, right 907763078 (SNOMED CT) Removed 10/17 Elvia Alexis MD Numbness of limbs Medications Medication Instructions Start Date Stop Date Generic Name NDC Provider OLANZAPINE 2.5 MG TABS Take 1 tablet by mouth three times a day as needed 7 olanzapine [id number] Elvia Alexis MD VENLAFAXINE HCL ER 150 MG [id number] Take 1 capsule (150mg) by mouth once daily with food. 3 venlafaxine 31810090998 QIEUSER QIEUSER PRAZOSIN HCL 2 MG CAPS Take 1 capsule (2mg) by mouth every night at bedtime. 3 prazosin 49109926539 QIEUSER QIEUSER PRAZOSIN HCL 1 MG CAPS Take 1 capsule (1mg) by mouth once daily. 3 prazosin 96669105279 QIEUSER QIEUSER PANTOPRAZOLE SODIUM 20 MG TBEC Take 1 Tablet (20 mg) by mouth once daily before a meal. 6 pantoprazole 57514615998 QIEUSER QIEUSER OLANZAPINE 2.5 MG TABS Take 1 tablet (2.5mg) by mouth 3 times daily as needed. 7 olanzapine 59957355370 QIEUSER QIEUSER OLANZAPINE 2.5 MG TABS Take 1 tablet (2.5mg) by mouth 3 times daily as needed. 3 olanzapine 68157559373 QIEUSER QIEUSER METFORMIN HCL 500 MG TABS Take 1 Tablet (500 mg) by mouth once daily with a meal. 9 metformin 49005081085 QIEUSER QIEUSER Medications Administered No information available. [...] Entry Date ORDERS Follow up as needed [id number] MRI-Cervical W/WO MS Protocol [id number] MRI-Thoracic W/WO MS Protocol CPT-38732 MRI Cervical W/WO CPT-I2334J ProHance Gadolinium- based MR Contrast - 20 ml vial CPT-66107 MRI Thoracic W/WO CPT-G6999C ProHance Gadolinium- based MR Contrast - 20 [...] up Extended i n clinic or telemedicine [id number] Other Referral [id number] LP-Lumbar Puncture 9 [id number] Documentation of current medicatio ns ORDERS Hepatic Function Panel (7) 2 ORDERS CK (Creatine Kinase) Total 2 ORDERS LIVAN (Angiotensin Converting Enzyme) 09/03 ORDERS TRAVIS ORDERS Lyme Total Ab w/Refl ex (reflex to Western Blot) ORDERS Rheumatoid (RA) Factor 09/03 ORDERS Sjogren's Ab - SSA/SSB (ANTI-Ro/ANTI-La) ORDERS Ceruloplasmin ORDERS Copper CPT-43936 Nerve Conduction 3-4 studies CPT-21740 EMG with NCS (5+ muscles) - 1 limb 10/17 Vital Signs Date Name Value Unit Description Weight Measured 190 [lb_av] weight E& M Weight Measured 190 [lb_av] weight E& M Immunizations No information available. Advance Directives No information available.
--- OUTSIDE RECORDS SUMMARY | 2024-12-24 14:38 | XMS_ITS | Clinical Summary ---
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 [address] [place] [address] Ai Fowler MBBS outreach (Diabetes) 10/10/2024 9:45 AM JINGLE WRITER Telemedicine [facility] [address] [facility] [address] [place] [address] Fabi Multani NP Telehealth; Medication Management (Pt [...] Uncle 3 MS Anxiety disorder Mother [facility] Mother Cancer Paternal Aunt abdominal Anesthesia Problem [...] on file Legal Sex Female 5:23 AM JINGLE WRITER Gender Identity Female 03/15/2020 1:52 AM CDT [...] ranv Spinal N Livin g Marva Delivery Location:[facility] (UTD 2000 MB L&D TRIAGE) Last Filed [...] Description 02/19/2025 8:30 AM CDT Office Visit [facility] [address] [place] [address] Husseni Doe MD [address] [place] [address] Scheduled Procedures Name Priority Associated Diagnoses Date/Ti [...] 07/02/2019, 03/31/2015 Medical Devices Implanted Type Area Armament Repairer Device Identifier Shelf Expiration Date Model / Serial / Lot Stent Uret [id number] Percuflex Hydroplus - [id number] Implanted:Qty: 1 on 05/18/2023 by Jeny Quinn MD at [facility] Left: [facility] 12/12/2025 [id number] / / [id number] Procedures Procedure Name Priority Date/Time Associated Diagnosis [...] ashleigh Non-React ashleigh 02/26/2019 10:21 PM CDT [facility] Comment:Antibodies to HCV no t detected; does not exclude the possibility of exposure to HCV. Blood BLOOD SPECIMEN / Unknown Venipuncture / Unknown 02/26/2019 2:52 PM CDT 02/26/2019 2:53 PM CDT Lula MCGUIRE SEND OUTS Final [facility] [address] [place] [address], * ANTI HIV 1/2 (02/26/2019 2:52 PM CDT) HIV-1/HIV-2 ANTIBODY Non-Reacti ve Non-Reacti ve 02/26/2019 10:27 PM CDT [facility] Comment:HIV-1 p24 and HIV-1/ HIV-2 Ab not detected. Blood BLOOD SPECIMEN / Unknown Venipuncture / Unknown 02/26/2019 2:52 PM CDT 02/26/2019 2:53 PM CDT us Lula MCGUIRE SEND OUTS Final R esult [facility] [address] [place] [address], [place] from Last 3 Months or Most Recently Relevant to Health Maintenance Insurance [facility] Member Subscriber Plan / Payer (Ef fective 2023-Present) Name:Tarah William Relation to Subscriber:Self Name:Tarah William Payer ID:[id number] (NAIC) Group ID:[id number] Type:Not on file Address: [address] Advance Directives * Full Code (Latest Code Status on File) Date Activated Date Inactivated Comments 05/18/2023 6:03 AM 05/18/2023 3:08 PM Question Answer Comments Code Status Discussion: Reviewed Preferences * Full Code Date Activated Date Inactivated Comments 04/25/2020 12:14 PM 04/27/2020 1:39 PM * Full Code Date Activated Date Inactivated Comments 08/09/2019 7:38 PM 08/14/2019 12:26 PM Care Teams Three Knife Trimmer Relationship Specialty Start [place] [address] [place] [address] PCP - General Physician Damage Adjuster 10/18/24
[2024-12-24] MEDS: GI COCKTAIL (VISC LIDO/ANTACID) 30 ML PO (14:40)
== END 2024-12-24 14:47 | disposition home or self-care (01) ==
LOC: ED 14:34
PROVIDERS: Emergency Provider Emergency Medicine Emergency Medical Services; PCP Physician Assistant Medical
DX: R11.10 Vomiting, unspecified (principal); R10.9 Unspecified abdominal pain
CPT/HCPCS: 96372; 99283; 99284; A9270; J1885